=== PATIENT | female | born 1970 ===

== ENCOUNTER 2020-10-10 09:31 | Outpatient (REF) | payer MEDICAID, SELFPAY ==
--- NOTE | 2020-10-10 09:36 | MM_ITS ---
EXAMINATION: MM SCREENING DIGITAL BREAST TOMOSYNTHESIS, BILATERAL CLINICAL INFORMATION: Screening. Asymptomatic. The lifetime risk of breast cancer based on the Tyrer-Cuzick Model is 6.1%. COMPARISON: Mammography: February 02, 2019 and studies dating back to July 10, 2010 TECHNIQUE: Digital breast tomosynthesis is performed in both the craniocaudal and mediolateral oblique views along with computer-aided detection (CAD). Synthesized 2D images are generated from the tomosynthesis. FINDINGS: The breasts are almost entirely fatty (ACR BI-RADS breast composition Category a). There are no significant masses, abnormal calcifications, or other abnormalities. MM/MM tomosynthesis screening BI IMPRESSION: There are no significant changes from prior study. ASSESSMENT: BI-RADS 1: Negative RECOMMENDATION: Routine annual mammography screening. This patient's information was entered into a reminder system with a target due date for their next mammogram.
== END 2020-10-10 09:32 | disposition home or self-care (01) ==
LOC: HO.MAMMO 09:31
PROVIDERS: PCP Nurse Practitioner Family; Visit Provider Nurse Practitioner Family
DX: Z12.31 Encounter for screening mammogram for malignant neoplasm of breast (principal)
CPT/HCPCS: 77063; 77067

== ENCOUNTER 2020-11-29 09:33 | Outpatient (REF) | payer MEDICAID, SELFPAY ==
--- NOTE | ~2020-11-29 | US_ITS ---
EXAMINATION: US THYROID CLINICAL INFORMATION: Nontoxic multinodular goiter. COMPARISON: None TECHNIQUE: Linear transducer manzo-scale and color Doppler examination with attention to the region of the thyroid. FINDINGS: SIZE: Measurements of the thyroid lobes and nodules are given in sagittal, anteroposterior and transverse dimensions respectively. Right Thyroid Lobe: 5.8 x 2.2 x 2.3 cm, volume 14.8 mL. Parenchyma: The gland echotexture is homogeneous. Thyroid vascularity is normal. Left Thyroid Lobe: 4.7 x 1.7 x 2.3 cm, volume 9.9 mL. Parenchyma: The gland echotexture is heterogeneous. Thyroid vascularity is normal. Isthmus: 0.8 cm in maximum AP dimension. Estimated total number of nodules greater than or equal to 1 cm: 3. Jerker nodules are described as follows: 1. Location: Right upper pole. Size: 0.9 x 0.5 x 0.7 cm, volume 0.2 mL. Nodule characteristics: Composition: Spongiform (0). ACR TI-RADS total points: 0 ACR TI-RADS category: 1 2. Location: Right mid/lower pole. Size: 1.6 x 1.1 x 2.0 cm, volume 1.7 mL. Nodule characteristics: Composition: Solid/almost completely solid (2). Echogenicity: Cannot be determined (1). Shape: Not taller than wide (0). Margins: Ill-defined (0). Echogenic Foci: None (0). ACR TI-RADS total points: 3 ACR TI-RADS category: 3 3. Location: Right mid pole. Size: 0.4 x 0.2 x 0.3 cm, volume 0.01 mL. Nodule characteristics: Composition: Solid (2). Echogenicity: Hyperechoic (1). Shape: Not taller than wide (0). Margins: Smooth (0). Echogenic Foci: Macrocalcifications (1). ACR TI-RADS total points: 4 ACR TI-RADS category: 4 4. Location: Right lower pole. Size: 2.8 x 2.2 x 3.0 cm, volume 9.7 mL. Nodule characteristics: Composition: Solid (2). Echogenicity: Isoechoic (1). Shape: Not taller than wide (0). Margins: Extrathyroidal extension (3). Echogenic Foci: Macrocalcifications (1). ACR TI-RADS total points: 7 ACR TI-RADS category: 5 5. Location: Left mid. Size: 1.5 x 0.8 x 1.5 cm, volume 0.9 mL. Nodule characteristics: Composition: Solid/almost completely solid (2). Echogenicity: Hypoechoic (2). Shape: Not taller than wide (0). Margins: Smooth (0). Echogenic Foci: None (0). ACR TI-RADS total points: 4 ACR TI-RADS category: 4 NODES: No lymphadenopathy is seen in the tissue surrounding the thyroid gland. US/US thyroid IMPRESSION: Enlarged thyroid gland with bilateral thyroid nodules. Fine-needle aspiration of the largest 2.8 x 2.2 x 3 cm nodule in the inferior right lobe and continued ultrasound follow-up recommended as detailed below. ACR TI-RADS RECOMMENDATIONS: Ultrasound-guided fine-needle aspiration, followup ultrasound, no further follow up. * TR1 (0 point) and TR 2 (2 points): No FNA or follow up * TR3 (3 points): FNA if more than or equal to 2.5 cm in maximum dimension, follow up in 1, 3 and 5 years if 1.5 to 2.4 cm in maximum dimension. * TR4 (4-6 points): FNA if more than or equal to 1.5 cm in maximum dimension, follow up in 1, 2, 3 and 5 years if 1 to 1.4 cm in maximum dimension. * TR5 (more than or equal to 7 points): FNA if more than or equal to 1 cm in maximum dimension, follow up every year for 5 years if 0.5 to 0.9 cm in maximum dimension. * TR3, TR4 or TR5 nodules that are below the size threshold for follow up receive no follow up.
== END 2020-11-29 09:34 | disposition home or self-care (01) ==
LOC: HO.US 09:33
PROVIDERS: PCP Nurse Practitioner Family; Visit Provider Nurse Practitioner Family
DX: E04.2 Nontoxic multinodular goiter (principal)
CPT/HCPCS: 76536

== ENCOUNTER → 2020-12-27 14:13 | Outpatient (BNVA) | payer MEDICAID, SELFPAY | PROVIDERS: PCP Nurse Practitioner Family; Referring Provider Nurse Practitioner Family; Visit Provider Nurse Practitioner ==

== ENCOUNTER → 2021-07-01 12:50 | Outpatient (BNVA) | payer MEDICAID, SELFPAY | PROVIDERS: PCP Family Medicine; Referring Provider Family Medicine; Visit Provider Nurse Practitioner | DX: K21.9 Gastro-esophageal reflux disease without esophagitis (principal); R10.9 Unspecified abdominal pain; K58.0 Irritable bowel syndrome with diarrhea | CPT/HCPCS: 99212 ==

== ENCOUNTER 2021-07-09 12:49 | Outpatient (REF) | payer MEDICAID, SELFPAY | END 2021-07-09 12:50 | disposition home or self-care (01) | LOC: HO.HOSX 12:49 | PROVIDERS: Visit Provider Physician Assistant | DX: Z13.89 Encounter for screening for other disorder (principal) ==

== ENCOUNTER 2021-08-19 09:46 | Day surgery (SDC) | payer MEDICARE, MEDICAID, SELFPAY ==
[2021-08-13 14:06] VITALS: BMI 34.9
[2021-08-19 10:38] LABS: Glucose, Whole Blood 137 mg/dL (60-115)
[2021-08-19 10:42] VITALS: BP 142/69; PULSE 98; RESP 20; TEMP 36.2; O2SAT 99
--- NOTE | 2021-08-19 10:55 | MHC.SHP ---
Pre-Procedural Eval Section A Date of Service: 08/19/21 Section B Chief Complaint: screening Relevant Family History (Specify if Yes): No Relevant Social History: None Present Medications: see Short Stay Collaborative assessment Medical History: Significant History (migraine, DM, obesity) History of Previous Operations: Relevant previous surgery/procedure and date(s) (History of carpal tunnel release History of ear surgery History of nasal surgery Hx of tubal ligation S/P panniculectomy) Allergies: Allergies Allergy/AdvReac Type Severity Reaction Status Date / Time doxepin Allergy Intermediate Nightmare Verified 08/13/21 13:45 vaccine adjuvant system, Allergy Intermediate Itching/chalo Verified 08/13/21 13:45 [id number] lipo h [From Shingrix (PF)] varicella-zoster virus Allergy Intermediate Itching/chalo Verified 08/13/21 13:45 glycoprotein h [From Shingrix (PF)] Review of Systems Sugical H&P ROS: Negative: Constitution, Cardiovascular, Respiratory, Neurological, Psychiatric, Hem-Onc, Allergic/Immunologic, Gastrointestinal, Genitourinary, Musculoskeletal, Integumentary, Endocrine and Eyes/Ears/Nose/Throat Exam Surgical H&P Exam: Normal: HEENT, Normal: Heart, Normal: Lungs, Normal: Extremities, Normal: Abdomen, Normal: Skin and Normal: Neurological Plan Diagnosis/Plan: Unchanged I have reviewed the history and physical and performed a pertinent physical examination on my patient. No changes have occurred unless specified.
--- NOTE | 2021-08-19 11:06 | PM.OP ---
Brief Operative Note Date of Service: 08/19/21 Pre-op diagnosis: hx of post prandial diarrhea and needs screening colonoscopy Post-op diagnosis: same Procedure: see op note Surgeon: Bronson Sepulveda MD Anesthesia: MAC Was an Cushion Gum Applicator used for this Procedure?: No Estimated blood loss (mL): 0 Condition: stable Disposition: PACU
--- NOTE | 2021-08-19 11:07 | P.OP_ITS ---
Operative Note Operative Note Date of Service: 08/19/21 Narrative: Operative Information Procedure Description: Colonoscopy COLONOSCOPY Instrument: Olympus variable stiffness adult scope 190L Colonoscopy Monitoring: Vital signs and clinical assessment, continuous EKG monitoring, Pulse oximetry, Carbon Dioxide monitoring and blood pressure monitoring were done throughout the procedure. Colon withdrawal time was 13 minutes. Procedure: The patient was placed in the left lateral decubitis position and pre-procedure medications were administered. After a digital rectal examination of the ano-rectum, the video colonoscope was inserted into the rectum and advanced through the colon to the cecum/TI. The colonoscope was slowly withdrawn in a retrograde panoramic fashion and the colon mucosa was carefully examined including a retroflexed view of the rectum. Findings and interventions are described below. Procedure Difficulty:moderate Findings: Terminal Ileum-normal, unable to take biospy due to unstable position random colon bx taken to r/o microscopic colitis Cecum:normal Ascending Colon: normal Transverse Colon -normal Descending Colon:normal Sigmoid Colon: normal Rectum: Retroflexion with small internal hemorrhoids, grade I Anorectum - normal Colon preparation: [place] Bowel Preparation Scale Right colon; 2 Transverse colon: 2 Left colon; 2 (0 = Unprepared colon segment with mucosa not seen due to solid stool that cannot be cleared. 1 = Portion of mucosa of the colon segment seen, but other areas of the colon segment not well seen due to staining, residual stool and/or opaque liquid. 2 = Minor amount of residual staining, small fragments of stool and/or opaque liquid, but mucosa of colon segment seen well. 3 = Entire mucosa of colon segment seen well with no residual staining, small fragments of stool or opaque liquid) Impression and Post Procedure Diagnosis: internal hemorrhoids Plan: High fiber diet leaflet Avoid straining at stool, epsom salts and sitz bath, anusol supps or cream Repeat Colonoscopy in 10 years or earlier if clinically indicated if bx neg and ongoing sx of post prandial diarrhea then consider EGD Above findings were reviewed with the patient and relevant handouts were provided if indicated.
[2021-08-19 11:45] VITALS: BP 127/68; PULSE 75; RESP 16; TEMP 36.4; O2SAT 100
[2021-08-19 12:02] VITALS: BP 144/79; PULSE 75; RESP 16; TEMP 36.2; O2SAT 98
== END 2021-08-19 12:50 | disposition home or self-care (01) ==
PROVIDERS: PCP Family Medicine; Visit Provider Internal Medicine Gastroenterology
PROC: 0DJD8ZZ Inspection of Lower Intestinal Tract, Via Natural or Artificial Opening Endoscopic (ICD-10-PCS; CPT 45378; principal; 2021-08-19 10:20)
DX: Z12.11 Encounter for screening for malignant neoplasm of colon (principal); K64.0 First degree hemorrhoids; K58.0 Irritable bowel syndrome with diarrhea; K21.9 Gastro-esophageal reflux disease without esophagitis; R10.30 Lower abdominal pain, unspecified; J45.909 Unspecified asthma, uncomplicated; G40.909 Epilepsy, unspecified, not intractable, without status epilepticus; I10 Essential (primary) hypertension; E11.9 Type 2 diabetes mellitus without complications; Z79.4 Long term (current) use of insulin; Z79.899 Other long term (current) drug therapy
CPT/HCPCS: 45380; 82947; 88305

== ENCOUNTER 2021-11-11 11:40 | Outpatient (REF) | payer MEDICARE, MEDICAID, SELFPAY ==
--- NOTE | ~2021-11-11 | MM_ITS ---
EXAMINATION: MM SCREENING DIGITAL BREAST TOMOSYNTHESIS, BILATERAL CLINICAL INFORMATION: Screening. Asymptomatic. The lifetime risk of breast cancer based on the Tyrer-Cuzick Model is 6%. COMPARISON: Mammography: 10/10/2020, 02/02/2019, 12/30/2017 TECHNIQUE: Digital breast tomosynthesis is performed in both the craniocaudal and mediolateral oblique views along with computer-aided detection (CAD). Synthesized 2D images are generated from the tomosynthesis. FINDINGS: There are scattered areas of fibroglandular density (ACR BI-RADS breast composition Category b). Breast tissue composition borders on predominantly fatty. Background stromal and fibroglandular markings are stable. There is a biopsy clip marker again seen posterior upper outer left breast. There is no developing density or interval mass or architectural abnormality. No abnormal calcifications. The axilla and skin contours are unremarkable. MM/MM tomosynthesis screening BI IMPRESSION: No mammographic evidence of malignancy. ASSESSMENT: BI-RADS 1: Negative RECOMMENDATION: Routine annual mammography screening. This patient's information was entered into a reminder system with a target due date for their next mammogram.
== END 2021-11-11 11:41 | disposition home or self-care (01) ==
LOC: HO.MAMMO 11:40
PROVIDERS: PCP Family Medicine; Visit Provider Family Medicine
DX: Z12.31 Encounter for screening mammogram for malignant neoplasm of breast (principal)
CPT/HCPCS: 77063; 77067

== ENCOUNTER 2021-11-29 07:10 | Outpatient (REF) | payer MEDICARE, MEDICAID, SELFPAY | END 2021-11-29 07:11 | disposition home or self-care (01) | LOC: HO.HOSX 07:10 | PROVIDERS: Visit Provider Physician Assistant | DX: Z13.89 Encounter for screening for other disorder (principal) ==

== ENCOUNTER 2021-12-23 07:33 | Outpatient (REF) | payer MEDICARE, MEDICAID, SELFPAY | END 2021-12-23 07:34 | disposition home or self-care (01) | LOC: HO.HOSX 07:33 | PROVIDERS: Visit Provider Physician Assistant | DX: Z13.89 Encounter for screening for other disorder (principal) ==

== ENCOUNTER 2021-12-25 15:11 | Outpatient (REF) | payer MEDICARE, MEDICAID, SELFPAY ==
--- NOTE | ~2021-12-25 | XR_ITS ---
EXAMINATION: XR HIP, RIGHT CLINICAL INFORMATION: Trochanteric bursitis, right hip COMPARISON: None TECHNIQUE: Two views of the right hip. FINDINGS: Bones and soft tissues are intact. There is mild enthesopathy at the greater and lesser trochanters. No fracture. Alignment is anatomic. Hip joint space is maintained, though there is a tiny focus of soft tissue calcification along the superolateral margin of the acetabulum. There are pelvic phleboliths. There is vascular calcification medial to the right femur. XR/XR hip RT min 2V IMPRESSION: No acute bony abnormality of the right hip. There is mild enthesopathy of the greater and lesser trochanters and tiny focus of calcification along the superolateral margin of the right acetabulum.
--- NOTE | ~2021-12-25 | XR_ITS ---
EXAMINATION: XR LUMBOSACRAL SPINE CLINICAL INFORMATION: Segmental and somatic dysfunction of sacral region COMPARISON: Lumbar spine radiographs 06/25/2018 TECHNIQUE: Three views of the lumbosacral spine. FINDINGS: Alignment of the lumbosacral spine is normal. No acute fracture seen. Disc spaces are relatively well-preserved when compared with prior. There are degenerative endplate changes of the thoracolumbar vertebral bodies most prominent at the lower thoracic levels where there is disc osteophyte formation along the anterolateral margins. There is some degree of foraminal narrowing at the L5-S1 foramina. XR/XR lumbar spine 2-3V IMPRESSION: Multilevel degenerative endplate change and osteophyte formation without acute abnormality. There may be some degree of foraminal narrowing at L5-S1.
== END 2021-12-25 15:12 | disposition home or self-care (01) ==
LOC: HO.XRAY 15:11
PROVIDERS: PCP Family Medicine; Visit Provider Family Medicine
DX: M70.61 Trochanteric bursitis, right hip (principal); M99.04 Segmental and somatic dysfunction of sacral region
CPT/HCPCS: 72100; 73502

== ENCOUNTER 2022-09-03 09:35 | Outpatient (REF) | payer MEDICARE, MEDICAID, SELFPAY ==
--- NOTE | ~2022-09-03 | XR_ITS ---
EXAMINATION: XR LUMBOSACRAL SPINE CLINICAL INFORMATION: Sacrococcygeal disorder COMPARISON: Previous x-ray most recent December 2021 TECHNIQUE: Three views of the lumbosacral spine. FINDINGS: There is curvature of the lumbar spine to the right. Bone alignment is otherwise normal. No fracture or dislocation. There is multilevel degenerative spondylosis in the lower thoracic spine, and at L1-L2 and L3-L4. Disc spaces are normal. There may be lower lumbar spine facet arthritis. XR/XR lumbar spine 2-3V IMPRESSION: Mild scoliosis and degenerative changes similar to December 2021 exam.
== END 2022-09-03 09:36 | disposition home or self-care (01) ==
LOC: HO.XRAY 09:35
PROVIDERS: PCP Family Medicine; Visit Provider Family Medicine
DX: M53.3 Sacrococcygeal disorders, not elsewhere classified (principal)
CPT/HCPCS: 72100

== ENCOUNTER 2023-01-21 12:14 | Outpatient (REF) | payer MEDICARE, MEDICAID, SELFPAY ==
--- NOTE | ~2023-01-21 | MM_ITS ---
EXAMINATION: MM SCREENING DIGITAL BREAST TOMOSYNTHESIS, BILATERAL CLINICAL INFORMATION: Screening. Asymptomatic. The lifetime risk of breast cancer based on the Tyrer-Cuzick Model is 6%. COMPARISON: Mammography: 11/11/2021, 10/10/2020, 02/02/2019 TECHNIQUE: Digital breast tomosynthesis is performed in both the craniocaudal and mediolateral oblique views along with computer-aided detection (CAD). Synthesized 2D images are generated from the tomosynthesis. FINDINGS: There are scattered areas of fibroglandular density (ACR BI-RADS breast composition Category b). No architectural abnormality or developing density or significant change from prior studies. Breast tissue composition borders on predominantly fatty. Background stromal and fibroglandular densities are stable. There are no significant masses, abnormal calcifications, or other abnormalities. Biopsy clip marker again seen posterior 3:00 left breast. MM/MM tomosynthesis screening BI IMPRESSION: No mammographic evidence of malignancy. ASSESSMENT: BI-RADS 1: Negative RECOMMENDATION: Routine annual mammography screening. This patient's information was entered into a reminder system with a target due date for their next mammogram.
== END 2023-01-21 12:15 | disposition home or self-care (01) ==
LOC: HO.MAMMO 12:14
PROVIDERS: PCP Family Medicine; Visit Provider Family Medicine
DX: Z12.31 Encounter for screening mammogram for malignant neoplasm of breast (principal)
CPT/HCPCS: 77063; 77067

== ENCOUNTER 2023-03-19 09:36 | Outpatient (REF) | payer MEDICARE, MEDICAID, SELFPAY ==
--- NOTE | ~2023-03-19 | XR_ITS ---
EXAMINATION: XR FACIAL BONES CLINICAL INFORMATION: Right arm contusion COMPARISON: None available. TECHNIQUE: 3 views of the facial bones were obtained. FINDINGS: There are no fractures or dislocations. No bone, joint or soft tissue abnormality is demonstrated. XR/XR facial bones min 3V IMPRESSION: Unremarkable examination.
== END 2023-03-19 09:37 | disposition home or self-care (01) ==
LOC: HO.XRAY 09:36
PROVIDERS: PCP Family Medicine; Visit Provider Family Medicine
DX: S05.11XA Contusion of eyeball and orbital tissues, right eye, initial encounter (principal)
CPT/HCPCS: 70150

== ENCOUNTER 2023-06-11 12:06 | Emergency (ER) | payer MEDICARE, MEDICAID, SELFPAY ==
--- NOTE | ~2023-06-11 | XR_ITS ---
X-RAY RIGHT SHOULDER X-RAY RIGHT HUMERUS CLINICAL HISTORY: Pain. COMPARISON: Radiograph right elbow earlier today. TECHNIQUE: 3 views of the right shoulder. 2 views of the right humerus. FINDINGS: Right shoulder: No acute fractures or subluxation. Moderate joint space narrowing with bony productive changes in the acromioclavicular joint. Ossific/calcific body adjacent to the greater tuberosity of the proximal humerus in the region of the insertion of the supraspinatus tendon. Right humerus: Redemonstration of avulsion fragment in along the medial articulating margin of the ulna. No additional fractures. Joint alignment is maintained at the elbow. XR/XR humerus RT IMPRESSION: 1. Redemonstration of intra-articular avulsion fracture along the medial articulating margin of the proximal ulna. 2. 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 3. Calcific/ossific body in the region of the insertion of the supraspinatus tendon suggesting calcific tendinitis.
--- NOTE | ~2023-06-11 | XR_ITS ---
X-RAY RIGHT SHOULDER X-RAY RIGHT HUMERUS CLINICAL HISTORY: Pain. COMPARISON: Radiograph right elbow earlier today. TECHNIQUE: 3 views of the right shoulder. 2 views of the right humerus. FINDINGS: Right shoulder: No acute fractures or subluxation. Moderate joint space narrowing with bony productive changes in the acromioclavicular joint. Ossific/calcific body adjacent to the greater tuberosity of the proximal humerus in the region of the insertion of the supraspinatus tendon. Right humerus: Redemonstration of avulsion fragment in along the medial articulating margin of the ulna. No additional fractures. Joint alignment is maintained at the elbow. XR/XR shoulder RT min 2V IMPRESSION: 1. Redemonstration of intra-articular avulsion fracture along the medial articulating margin of the proximal ulna. 2. 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 3. Calcific/ossific body in the region of the insertion of the supraspinatus tendon suggesting calcific tendinitis.
--- NOTE | ~2023-06-11 | XR_ITS ---
EXAMINATION: XR WRIST, RIGHT CLINICAL INFORMATION: Pain. COMPARISON: None available. TECHNIQUE: Four views of the right wrist. FINDINGS: No acute fractures or subluxation. Carpal rows are maintained. No abnormal soft tissue calcifications or unexpected radiopaque foreign bodies. XR/XR wrist RT min 3V IMPRESSION: No significant radiographic abnormality to explain the patient's pain.
--- NOTE | ~2023-06-11 | XR_ITS ---
EXAMINATION: XR ELBOW, RIGHT CLINICAL INFORMATION: Pain status post fall. COMPARISON: None available. TECHNIQUE: AP, lateral, and oblique views of the right elbow. FINDINGS: There is an acute appearing nondisplaced intra-articular fracture along the medial/proximal articulating margin of the ulna. The proximal radius and distal humerus appear intact. No significant joint effusion. The soft tissues are unremarkable. XR/XR elbow RT min 3V IMPRESSION: Acute appearing nondisplaced intra-articular fracture along the medial/proximal articulating margin of the ulna.
--- NOTE | 2023-06-11 12:33 | ED_ITS ---
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 Patient states that she tripped on uneven concrete yesterday and fell onto her right elbow. Patient reports that she was feeling well prior to the fall. Denies any dizziness, headaches, lightheadedness, chest pain or palpitations prior to the fall. She states that she fell onto her outstretched right hand. She immediately felt pain in her right elbow. She states that she was unable to sleep given the pain that she was having last night. Denies history of trauma to her right elbow in the past. She denies taking any medications at home to treat her pain. No other complaints or concerns at this time. MD complaint: Right elbow pain Onset (ago): day(s) Location: upper extremity Radiation: non-radiation Severity: moderate Quality: aching Pain Consistency: constant Relieving factors: none Exacerbating factors: none Associated symptoms: denies other symptoms Treatments prior to arrival: none Related Data Home Medications Medication Instructions Recorded Confirmed albuterol sulfate 90 mcg/actuation 2 puff inhalation Q6H PRN Wheezing 12/27/20 08/13/21 aerosol inhaler (ProAir HFA) atorvastatin 80 mg tablet 80 mg PO DAILY 12/27/20 08/13/21 cholecalciferol (vitamin D3) 50 50 mcg PO DAILY 12/27/20 08/13/21 mcg (2,000 unit) capsule darifenacin 15 mg tablet,extended 15 mg PO DAILY 12/27/20 08/13/21 release 24 hr glipizide 5 mg tablet 5 mg PO DAILY 12/27/20 12/27/20 insulin glargine 100 unit/mL (3 6 unit subcut QPM 12/27/20 08/13/21 mL) subcutaneous pen (Lantus Solostar U-100 Insulin) loratadine 10 mg tablet (Allergy 10 mg PO DAILY 12/27/20 08/13/21 Relief (loratadine)) melatonin 5 mg capsule 5 mg PO BEDTIME 12/27/20 08/13/21 metformin 1,000 mg tablet 1,000 mg PO BID 12/27/20 08/13/21 mometasone 50 mcg/actuation nasal 2 spray intranasal DAILY 12/27/20 08/13/21 spray (Nasonex) trazodone 50 mg tablet 50 mg PO DAILY 12/27/20 08/13/21 oxcarbazepine 600 mg tablet 600 mg PO QAM 07/01/21 08/13/21 propranolol 20 mg tablet 20 mg PO BID 07/01/21 08/13/21 citalopram 20 mg tablet 1 tab PO DAILY 08/13/21 08/13/21 dulaglutide 1.5 mg/0.5 mL 0.5 ml subcut QWEEK 08/13/21 08/13/21 subcutaneous pen injector (Trulicity) fluticasone propionate 44 2 puff PO BID 08/13/21 08/13/21 mcg/actuation HFA aerosol inhaler (Flovent HFA) lisinopril 20 mg tablet 1 tab PO DAILY 08/13/21 08/13/21 oxcarbazepine 600 mg tablet 1,200 mg PO BEDTIME 08/13/21 08/13/21 Previous Rx's Medication Instructions Recorded peg 3350-electrolytes 236 240 ml PO Q10M 1 day #4,000 mL 07/01/21 gram-22.74 gram-6.74 gram-5.86 gram solution (Golytely) omeprazole 40 mg capsule,delayed 40 mg PO DAILY #30 caps 09/26/21 release imipramine HCl 10 mg tablet 10 mg PO BEDTIME 30 days #30 tabs 04/25/22 dicyclomine 20 mg tablet 20 mg PO BID for cramps #120 tabs 03/11/23 acetaminophen 325 mg capsule 650 mg PO Q6H PRN pain #45 caps 06/11/23 (Tylenol) ibuprofen 600 mg tablet 600 mg PO Q6H PRN pain #45 tabs 06/11/23 oxycodone 5 mg tablet 5 mg PO Q6H PRN pain #5 tabs 06/11/23 Allergies Allergy/AdvReac Type Severity Reaction Status Date / Time doxepin Allergy Intermediate Nightmare Verified 06/11/23 12:34 vaccine adjuvant system, Allergy Intermediate Itching/chalo Verified 06/11/23 12:34 AS01B lipo h [From Shingrix (PF)] varicella-zoster virus Allergy Intermediate Itching/chalo Verified 06/11/23 12:34 glycoprotein h [From Shingrix (PF)] Review of Systems Review of Systems: Yes all other systems are reviewed and are negative Constitutional: Constitutional: Reports as per HPI [facility] Past Medical History Medical History Asthma Depression Diabetes Epilepsy GERD (gastroesophageal reflux disease) HTN (hypertension) IBS (irritable bowel syndrome) Sleep apnea Surgical History History of carpal tunnel release History of ear surgery History of nasal surgery Hx of tubal ligation S/P panniculectomy Family History Family History Father Diabetes Mother Alzheimers disease HTN (hypertension) Social History Social History Alcohol intake: unknown Patient Tobacco Use Status: Former Tobacco user Tobacco use type: Cigarette Advance Directives: No Physical Exam ED Vital Signs: Vital Signs - 24 hr 06/11/23 12:35 06/11/23 14:41 06/11/23 17:54 Temperature 98 F 98.1 F Pulse Rate 76 78 75 Respiratory Rate 18 16 18 Blood Pressure 143/84 H 144/75 H 142/72 H Pulse Oximetry 98 96 100 Oxygen Delivery Method Room Air Room Air BMI result Body Mass Index 33.2 Const General: cooperative, comfortable and no acute distress Orientation/consciousness: patient oriented x3 Limitations: no limitations [facility] Head: Yes normal to inspection, Yes normocephalic and Yes atraumatic Ears: hearing grossly normal bilaterally General nose exam: Normal external nose present Face and sinus: Yes normal facial exam Mouth: Normal oral and palatal mucosa present, oropharynx normal and moist mucous membranes Throat: Yes posterior oropharynx normal Eyes General: appearance normal, both eyes and all related structures Eyelids: Yes eyelids normal Conjunctivae: conjunctivae normal Sclerae: sclerae normal Pupils: Equal, round and reactive pupils present EOM: EOMs intact bilaterally Neck Neck: Yes normal visual inspection, Yes full ROM and Yes no lymphadenopathy Lymphatic: no lymphadenopathy noted Chest Chest palpation & inspection: normal inspection of the chest Resp Effort & Inspection: normal respiratory effort and able to speak in complete sentences Auscultation: clear to auscultation bilaterally, no crackles, no rales, no rhonchi and no wheezes Cardio Rate: regular rate Rhythm: regular rhythm Heart sounds: S1 normal heart sound present and S2 normal heart sound present GI Inspection: Yes normal to inspection Skin General skin exam: no rashes or lesions noted Trauma: no lacerations or abrasions Wounds: no wounds Neuro General: patient oriented x3 and moves all extremities Cranial nerves: Yes Equal, round and reactive pupils present Extrem Other: Right elbow with tenderness to palpation along the medial lateral epicondyle. Limited range of motion secondary to pain. Tenderness to palpation over the distal radius and, no snuffbox tenderness. Able to make a fist without difficulty. Tenderness diffusely throughout right shoulder and right humerus without any specific point tenderness. No overlying warmth, erythema. Distal pulses 2+. General: Yes normal to inspection Right upper extremity: normal to inspection Left upper extremity: normal to inspection Right lower extremity: normal to inspection Left lower extremity: normal to inspection Course Course Course Narrative: RME- 53-year-old female presents for evaluation of right elbow pain after a fall. She reports tripping on concrete because it is uneven. This happened yesterday. Plan for x-ray. Denies hitting her head or losing consciousness Medications Administered Discontinued Medications Generic Name Dose Route Start Last Admin Trade Name Freq PRN Reason Stop Dose Admin Acetaminophen 975 mg 06/11/23 16:06 06/11/23 16:14 Acetaminophen 325 Mg Tablet PO 06/11/23 16:07 975 mg ONCE ONE Administration Procedures Orthopedic Splinting/Casting Injury #1: Side: right Upper Extremity Injury Location: elbow Upper Extremity Immobilizer: sling/shoulder immobilizer and sugar tong splint Additional Comments: Distal sensation and circulation intact post splinting Medical Decision Making Medical Decision Making MDM Narrative: This is a 53-year-old female presenting to the emergency department for evaluation of right elbow pain since mechanical fall which occurred yesterday. On arrival, patient mildly hypertensive at 143/84. All other vital signs within normal limits. Examination revealing right elbow edema and tenderness. Concerning for fracture. Less likely compartment syndrome given no exquisite tenderness. Patient also has diffuse tenderness along the right humerus right shoulder and right wrist. Given fracture, will obtain x-rays for further evaluation. Additional x-rays revealing degenerative changes without any acute fractures besides the intra articular avulsion fracture along the medial articulating margin of the proximal ulna. I discussed this with my attending physician, Dr. Reveles. Will place patient in sugar-tong splint, given orthopedic referral. Discharged on ibuprofen and Tylenol. Also given prescription for oxycodone to be used for severe pain only. Patient placed in sling. Patient expresses good understanding of current medical condition and will follow-up with orthopedics. Will call tomorrow for appointment. Patient stable for discharge Differential Diagnosis Differential Diagnoses: The differential diagnosis associated with the presentation includes Fracture, contusion, dislocation, compartment syndrome-un likely Radiology Impression Discussion of test interpretation with radiology: I have reviewed the radiologist's reading. Radiologist Impression: X-RAY RIGHT SHOULDER X-RAY RIGHT HUMERUS CLINICAL HISTORY: Pain. COMPARISON:? Radiograph right elbow earlier today. TECHNIQUE: 3 views of the right shoulder. 2 views of the right humerus. FINDINGS:? Right shoulder: No acute fractures or subluxation. Moderate joint space narrowing with bony productive changes in the acromioclavicular joint. Ossific/calcific body adjacent to the greater tuberosity of the proximal humerus in the region of the insertion of the supraspinatus tendon. Right humerus: Redemonstration of avulsion fragment in along the medial articulating margin of the ulna. No additional fractures. Joint alignment is maintained at the elbow. XR/XR humerus RT IMPRESSION: 1.? Redemonstration of intra-articular avulsion fracture along the medial articulating margin of the proximal ulna. 2.? 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 3.? Calcific/ossific body in the region of the insertion of the supraspinatus tendon suggesting calcific tendinitis. Dictated By: Poornima Kinney Signed By: <Electronically signed by Rosalind Kinney in OV> Prescription Management I considered prescription management with: Pain Medication Discharge Plan Discharge Clinical Impression: Fracture of proximal ulna Patient Disposition: Home, Self-Care Instructions: Arm Fracture in Adults (ED), Shoulder Immobilizer (ED) Additional Instructions: You were seen today for right elbow pain, and your x-rays that report performed today shows an ulnar fracture. Please keep arm in splint and shoulder immobilizer until you are seen by Orthopedics. Please call tomorrow to make an appointment. Please take ibuprofen and Tylenol as directed as needed for pain. I am also giving you a stronger pain medication. Please be advised that oxycodone can cause drowsiness, do not drink alcohol or drive while taking this medication. Only take this medication for severe pain only. This medication can be addictive, therefore it is crucial to only take if you need it. We are unable to refill this pain medication from the emergency department therefore if you have any pain that requires and medication refill on you must follow-up with your primary care physician. Rest, ice, elevate your arm for pain relief. If any new or worsening symptoms occur including but not limited to worsening pain, numbness and tingling into her fingers, or any other concerning symptoms, please return for re-evaluation. Lo atendieron hoy por dolor en el codo derecho y las radiograf?as que le realizaron hoy muestran daina fractura cubital. Mantenga el brazo entablillado y el inmovilizador de hombro hasta que lo atienda un ortopedista. Por favor llame ma?hector para programar daina trudy. Parole ibuprofeno y Tylenol seg?n las indicaciones, seg?n sea necesario para el dolor. Tambi?n te estoy dando un analg?sico m?s evans. Tenga en cuenta que la oxicodona puede provocar somnolencia; no blas alcohol ni conduzca mientras est? tomando wild medicamento. Parole wild medicamento ?nicamente para el dolor i ntenso. Wild medicamento puede ser adictivo, por lo que es fundamental tomarlo s?lo si lo necesita. No podemos reabastecer wild analg?sico desde el departamento de emergencias, por lo tanto, si tiene alg?n dolor que requiera un reabastecimiento de medicamento, debe realizar un seguimiento con baez m?dico de atenci?n primaria. Descanse, coloque hielo, levante el brazo para aliviar el dolor. Si se presenta alg?n s?ntoma nuevo o que empeora, incluido, entre otros, un empeoramiento del dolor, entumecimiento y hormigueo en los dedos, o cualquier otro s?ntoma preocupante, regrese para daina reevaluaci?n. Prescriptions: New ibuprofen 600 mg tablet 600 mg PO Q6H PRN (Reason: pain) Qty: 45 0RF acetaminophen [Tylenol] 325 mg capsule 650 mg PO Q6H PRN (Reason: pain) Qty: 45 0RF oxycodone 5 mg tablet 5 mg PO Q6H PRN (Reason: pain) Qty: 5 0RF Rx Instructions: Partial Fill upon patient request. No Action omeprazole 40 mg capsule,delayed release(DR/EC) 40 mg PO DAILY Qty: 30 0RF imipramine HCl 10 mg tablet 10 mg PO BEDTIME 30 Days Qty: 30 6RF dicyclomine 20 mg tablet 20 mg PO BID Qty: 120 5RF oxcarbazepine 600 mg Tablet 1,200 mg PO BEDTIME lisinopril 20 mg tablet 1 tab PO DAILY citalopram 20 mg tablet 1 tab PO DAILY Flovent HFA 44 mcg/actuation HFA aerosol inhaler 2 puff PO BID Trulicity 1.5 mg/0.5 mL pen injector 0.5 ml subcut QWEEK oxcarbazepine 600 mg tablet 600 mg PO QAM propranolol 20 mg tablet 20 mg PO BID peg 3350-electrolytes [Golytely] 236-22.74-6.74 -5.86 gram recon soln 240 ml PO Q10M 1 Days Qty: 4000 0RF Rx Instructions: until fecal effluent is clear; do not exceed a total volume of 2,000 mL metformin 1,000 mg tablet 1,000 mg PO BID atorvastatin 80 mg tablet 80 mg PO DAILY mometasone [Nasonex] 50 mcg/actuation spray,non-aerosol 2 spray intranasal DAILY Rx Instructions: administer into each nostril albuterol sulfate [ProAir HFA] 90 mcg/actuation HFA aerosol inhaler 2 puff inhalation Q6H PRN (Reason: Wheezing) trazodone 50 mg tablet 50 mg PO DAILY darifenacin 15 mg tablet extended release 24 hr 15 mg PO DAILY cholecalciferol (vitamin D3) 50 mcg (2,000 unit) capsule 50 mcg PO DAILY melatonin 5 mg capsule 5 mg PO BEDTIME glipizide 5 mg tablet 5 mg PO DAILY Lantus Solostar U-100 Insulin 100 unit/mL (3 mL) insulin pen 6 unit subcut QPM loratadine [Allergy Relief (loratadine)] 10 mg tablet 10 mg PO DAILY Referrals: [facility] Orthopedic Surgeons [Provider Group] Interventions: ED Discharge Assessment Last Done: 06/11/23 18:38 Discharge Date/Time: 06/11/23 18:39
[2023-06-11 12:35] VITALS: BP 143/84; PULSE 76; RESP 18; TEMP 36.6; O2SAT 98; BMI 33.2
[2023-06-11 14:41] VITALS: BP 144/75; PULSE 78; RESP 16; O2SAT 96
[2023-06-11] MEDS: Acetaminophen 325 MG TABLET 975 MG PO (16:14)
[2023-06-11 17:54] VITALS: BP 142/72; PULSE 75; RESP 18; TEMP 36.7; O2SAT 100
== END 2023-06-11 18:39 | disposition home or self-care (01) ==
PROVIDERS: Emergency Provider Emergency Medicine; PCP Family Medicine
DX: S52.001A Unspecified fracture of upper end of right ulna, initial encounter for closed fracture (principal); W01.0XXA Fall on same level from slipping, tripping and stumbling without subsequent striking against object, initial encounter; Y93.01 Activity, walking, marching and hiking; Y92.480 Sidewalk as the place of occurrence of the external cause; Y99.9 Unspecified external cause status
CPT/HCPCS: 29105; 73030; 73060; 73080; 73110; 99284

== ENCOUNTER 2023-06-29 06:53 | Outpatient (REF) | payer MEDICARE, MEDICAID, SELFPAY ==
--- NOTE | ~2023-06-29 | XR_ITS ---
EXAMINATION: XR ELBOW, RIGHT CLINICAL INFORMATION: Right elbow pain. COMPARISON: Right elbow radiographs dated 06/11/2023. TECHNIQUE: AP, lateral, and oblique views of the right elbow. FINDINGS: Ulnotrochlear joint space narrowing with bony remodeling, subchondral sclerosis, and marginal osteophytes, similar when compared to the prior examination. Enthesopathic spurring redemonstrated at the lateral epicondyle. No acute fracture or dislocation. No concerning lytic or blastic osseous lesion. No significant joint effusion. XR/XR elbow RT min 3V IMPRESSION: 1. Ifheoyqz-bn-ldogpt ulnotrochlear osteoarthritis, similar when compared to the prior examination. 2. Enthesopathic spurring redemonstrated at the lateral epicondyle.
== END 2023-06-29 06:54 | disposition home or self-care (01) ==
LOC: HO.HOSX 06:53
PROVIDERS: Visit Provider Physician Assistant
DX: S42.444A Nondisplaced fracture (avulsion) of medial epicondyle of right humerus, initial encounter for closed fracture (principal); W01.0XXA Fall on same level from slipping, tripping and stumbling without subsequent striking against object, initial encounter; Y93.9 Activity, unspecified; Y92.9 Unspecified place or not applicable; Y99.9 Unspecified external cause status
CPT/HCPCS: 73080

== ENCOUNTER 2023-06-29 13:35 | Outpatient (AMB) | payer MEDICARE, MEDICAID, SELFPAY ==
--- NOTE | 2023-06-29 13:48 | A.OFFVIS_ITS ---
Intake Vital Signs 06/29/23 13:56 Height 5 ft 8 in Weight 218 lb BMI 33.1 Intake Visit Reasons: fc-Fracture of proximal ulna DOI 06/10/23 Intake Note: Lianna a 53 year old right hand dominant female who presents today with daughter for an ER follow up of right proximal ulna fx, DOI 06/10/23. Patient reports she tripped causing her to fall on her right elbow. Currently pain has improved since injury. Denies numbness or tingling. Complaints of pain in her right shoulder but states this is caused by her arthritis. Allergies doxepin Allergy (Intermediate, Verified 06/29/23 13:51) Nightmare vaccine adjuvant system, AS01B lipo [From Shingrix (PF)] Allergy (Intermediate, Verified 06/29/23 13:51) Itching/rash varicella-zoster virus glycoprotein [From Shingrix (PF)] Allergy (Intermediate, Verified 06/29/23 13:51) Itching/rash HPI fc-Fracture of proximal ulna DOI 06/10/23 HPI Details 53-year-old right hand dominant female juan reece presents to the office today with her daughter for an ER follow-up of elbow injury s/p tripping and falling on her right elbow, 06/10/23. She states she has pain in her right elbow which is improved since her DOI. She denies any numbness or tingling. [facility] Medical History Asthma Depression Diabetes Epilepsy GERD (gastroesophageal reflux disease) HTN (hypertension) IBS (irritable bowel syndrome) Sleep apnea Surgical History S/P panniculectomy History of carpal tunnel release Hx of tubal ligation History of nasal surgery History of ear surgery Family History Father Diabetes Mother Alzheimers disease HTN (hypertension) Social History (Updated 06/29/23 @ 13:57 by REZA Perez) Alcohol intake: unknown Patient Tobacco Use Status: Former Tobacco user Tobacco use type: Cigarette Current occupational status: unemployed Current occupation: right hand dominant Review of Systems Const All systems reviewed & are unremarkable except as noted in HPI and below Physical Exam Vital Signs: BMI result Body Mass Index 33.1 Extrem Other: Right elbow: Normal to inspection. She has no tenderness over the medial or lateral epicondyle. No pain over the radial head or olecranon. She has full flexion and extension. She can sup and pro without pain. NVI. Office Procedures Fracture Care Fracture Billing Code: Fracture Billing Code Results Reviewed Results Reviewed: X-rays of the right elbow obtained in the office today show an evulsion fracture along the medial epicondyle of the right elbow. Assessment & Plan Assessment & Plan (1) Fracture of medial epicondyle of humerus: Code(s): S42.443A - Displaced fracture (avulsion) of medial epicondyle of unspecified humerus, initial encounter for closed fracture Qualifiers: Encounter type: initial encounter Fracture type: closed Fracture morphology: avulsion Fracture alignment: nondisplaced Laterality: right Qual ified Code(s): S42.444A - Nondisplaced fracture (avulsion) of medial epicondyle of right humerus, initial encounter for closed fracture Plan Given the absence of pain and her full function she can increase activity as tolerated using caution with any type of lifting activities that may cause pain. If she develops any type of ques or concerns, patient will contact the office, otherwise follow-up as needed. Orders: Orders XR elbow RT min 3V Today M25.521 - Pain in right elbow Patient Instructions: Scribed for Jackie Manriquez PA-C, by Leonides Beltran medical billing and coding instructor, on 06/29/2023 at 1:45 PM EST. IJackie PA-C, have personally reviewed and agree with the information entered by the scribe. Coding Level of Care Code New Pt Level 3 (80734) Diagnoses Closed nondisplaced avulsion fracture of medial epicondyle of right humerus, initial encounter S42.444A Encounter type: initial encounter Fracture type: closed Fracture morphology: avulsion Fracture alignment: nondisplaced Laterality: right CPT Codes Fracture Care - Fracture Billing Code: Fracture Billing Code ([id number])
[2023-06-29 13:56] VITALS: BMI 33.1
== END 2023-06-29 14:06 | disposition home or self-care (01) ==
PROVIDERS: PCP Family Medicine; Visit Provider Physician Assistant
DX: S42.444A Nondisplaced fracture (avulsion) of medial epicondyle of right humerus, initial encounter for closed fracture (principal)
CPT/HCPCS: 99203

== ENCOUNTER 2023-12-31 09:58 | Outpatient (REF) | payer MEDICARE, MEDICAID, SELFPAY ==
[2023-12-31 14:19] LABS: MANUAL DIFF FLAG NO
[2023-12-31 14:25] LABS: Basophils Percent Auto 0.4 % (0-2); Eosinophils Absolute Auto 0.2 X10*3/uL (0.0-0.4); Eosinophils Percent Auto 3.9 % (0-4); Hematocrit 28.3 % (37.0-47.0); Imm Gran Abs Auto 0.02 X10*3/uL (0.00-0.03); Imm Gran Pct Auto 0.4 % (0.0-0.4); Lymphocytes Absolute Auto 1.7 X10*3/uL (1.2-4.9); Lymphocytes Percent Auto 30.4 % (20-40); Mean Corpuscular HGB Conc 31.8 g/dl (31.0-35.0); Mean Corpuscular Hemoglobin 25.6 pg (27.0-33.0); Mean Corpuscular Volume 80.6 fL (80.0-98.0); Mean Platelet Volume 8.6 fL (9.4-12.3); Monocytes Absolute Auto 0.5 X10*3/uL (0.1-1.2); Monocytes Percent Auto 9.9 % (2-11); Platelet Count 307 X10*3/uL (160-400); Red Blood Count 3.51 X10*6/uL (4.20-5.50); Red Cell Distribution Width 15.7 % (11.0-16.0); White Blood Count 5.4 X10*3/uL (4.8-10.8)
[2023-12-31 15:09] LABS: Microalbum/Creatinine Ratio Ur 59.1 ug/mg cr (<30)
[2023-12-31 15:19] LABS: Alanine Aminotransferase 17 U/L (0-31); Albumin Level 3.8 g/dL (3.5-5.0); Alkaline Phosphatase 70 U/L (39-117); Anion Gap 15 (12-20); Aspartate Amino Transferase 16 U/L (5-31); Bilirubin Total 0.3 mg/dL (0.0-1.0); Blood Urea Nitrogen 8 mg/dL (9-16); Calcium 8.8 mg/dL (8.4-10.2); Carbon Dioxide 26 mmol/L (22-29); Chloride 92 mmol/L (96-108); Cholesterol 156 mg/dL (<200); Estimated Glomerular Filt Rate > 60; Glucose Random 99 mg/dL (60-115); HDL Cholesterol 65 mg/dL (>40); LDL Cholesterol Calculated 75 mg/dL (<100); Potassium 4.3 mmol/L (3.3-5.1); Sodium 129 mmol/L (135-145); Triglycerides 80 mg/dL (<150)
[2023-12-31 15:29] LABS: Folate 10.1 ng/mL (> or = 4.0); Vitamin B12 316 pg/mL (200-900)
[2024-01-01 04:37] LABS: HIV AB/AG Nonreactive (Nonreactive); HIV Num 1 0.05 S/CO (0.00-0.99); ~HepC Num1 0.08 S/CO (0.00-0.79); ~Hepatitis C Antibody Nonreactive (Nonreactive)
== END 2023-12-31 09:59 | disposition home or self-care (01) ==
LOC: HO.CHCLDS 09:58
PROVIDERS: Visit Provider Family Medicine
DX: E66.01 Morbid (severe) obesity due to excess calories (principal); Z13.9 Encounter for screening, unspecified; Z68.41 Body mass index [BMI] 40.0-44.9, adult
CPT/HCPCS: 36415; 80053; 80061; 82043; 82570; 82607; 82746; 85025; 86803; 87389

== ENCOUNTER 2024-02-15 09:47 | Outpatient (REF) | payer MEDICARE, MEDICAID, SELFPAY ==
[2024-02-15 14:17] LABS: Immature Retic Fraction 32.1 % (3.0-15.9); Reticulocyte Percent 3.1 % (0.5-1.8); Reticulocytes Absolute 0.118 X10*6/uL (0.026-0.095)
[2024-02-15 14:57] LABS: Alanine Aminotransferase 23 U/L (0-31); Albumin Level 3.9 g/dL (3.5-5.0); Alkaline Phosphatase 65 U/L (39-117); Anion Gap 10 (12-20); Aspartate Amino Transferase 21 U/L (5-31); Bilirubin Total 0.2 mg/dL (0.0-1.0); Blood Urea Nitrogen 8 mg/dL (9-16); C Reactive Protein 0.22 mg/dL (< or = 0.50); Calcium 8.8 mg/dL (8.4-10.2); Carbon Dioxide 28 mmol/L (22-29); Chloride 95 mmol/L (96-108); Estimated Glomerular Filt Rate > 60; Glucose Random 106 mg/dL (60-115); Iron 43 mcg/dL (30-160); Percent Iron Saturation 13 % (15-50); Potassium 4.2 mmol/L (3.3-5.1); Sodium 129 mmol/L (135-145); Total Iron Binding Capacity 324 mcg/dL (228-428); Total Protein 6.9 g/dL (6.5-8.0); Unsaturated Iron Binding 281 ug/dL
[2024-02-15 15:14] LABS: Ferritin 9 ng/mL (10-250); TSH reflex Free T4 0.99 uIU/mL (0.32-4.0)
== END 2024-02-15 09:48 | disposition home or self-care (01) ==
LOC: HO.CHCLDS 09:47
PROVIDERS: Visit Provider Family Medicine
DX: D64.9 Anemia, unspecified (principal)
CPT/HCPCS: 36415; 80053; 82728; 83540; 84443; 85045; 86140

== ENCOUNTER 2024-02-18 09:48 | Outpatient (REF) | payer MEDICARE, MEDICAID, SELFPAY ==
[2024-02-18 14:20] LABS: OBS1 NEGATIVE (NEGATIVE); OBS2 NEGATIVE (NEGATIVE)
[2024-02-18 14:21] LABS: OBS Int Ctl Valid YES; OBS Lot 50322; OBS3 NEGATIVE (NEGATIVE)
== END 2024-02-18 09:49 | disposition home or self-care (01) ==
LOC: HO.CHCLNP 09:48
PROVIDERS: Visit Provider Family Medicine
DX: D64.9 Anemia, unspecified (principal)
CPT/HCPCS: 82270

== ENCOUNTER 2024-07-06 12:44 | Outpatient (AMB) | payer MEDICARE, MEDICAID, SELFPAY ==
--- NOTE | 2024-07-06 12:46 | A.OFFVIS_ITS ---
Vital Signs 07/06/24 12:50 Height 5 ft 6 in Weight 252 lb BMI 40.7 BP 127/58 L Blood Pressure Location Lt brachial Position Sitting Pulse 73 Intake Visit Reasons: Diarrhea, heartburn, anemia Intake Note: atient new consult for diarrhea, hearburn and anemia. Patient cc: abdominal pain with bloating, diarrhea, heartburn, and denies any other GI issues. 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 For a month she has been having severe lower abdomen pain/cramping and diarrhea multiple times a day. This corresponds to starting insulin for her diabetes. She has been taking the dicyclomine 10mg qid, so we will increase this and add [id number] qhs. She used only be bothered by greasy foods but now she finds absolutely everything she eats, except fruits, bothers her stomach and causes the cramping and diarrhea.? This is a big change so I think it does have to do with her sugar control and beginning insulin, although I counseling services manager her that insulin is important to her diabetes control and we do not want to vilify that drug and we can easily work around the symptoms. We discussed adding a fiber supplement and the fact that eating only fruits is probably contributing to her diarrheal cycles because of glucose load.? I tell her that there are better fiber options such as oatmeal or brand to control her symptoms.? These also have slower systemic absorption of would be better for her diabetes as long as she is not having a lot of sugar to these foods. She continues on her omeprazole 40mg qd with good control of her GERD. She is also due for screening colonoscopy so the prep and the procedure are all reviewed in explained to her along with the reasons why this needs to be done after age 45. She is agreeable to have the procedure so we will get ordered and I will see her after the procedure as usual. I also and is here in 4 weeks to go over how she is doing with the new medications and the adjustment to her diet.? (2) Abdominal cramping: ?Code(s): R10.9 - Unspecified abdominal pain (3) GERD (gastroesophageal reflux disease): ?Code(s): K21.9 - Gastro-esophageal reflux disease without esophagitis (4) Colon cancer screening: ?Code(s): Z12.11 - Encounter for screening for malignant neoplasm of colon ? ? ? Orders:?Orders Comprehensive Met. Panel 07/01/21 Z12.11 - Encounter for screenin g for malignant neoplasm of colon ? TSH reflex Free T4 07/01/21 Z12.11 - Encounter for screenin g for malignant neoplasm of colon ? Complete Blood Count Auto Diff 07/01/21 Z12.11 - Encounter for screenin g for malignant neoplasm of colon ? Medications:?New dicyclomine 20 mg? PO QID 30 days 120 tabs 6RF R10.9 - Unspecified abdominal pain ? imipramine HCl 10 mg? PO BEDTIME 30 days 30 tabs 6RF K5 8.0 - Irritable bowel syndrome with diarrhea, R10.9 - Unspecified abdominal pain ? peg 3350-electrolytes 236-22.74-6.74 -5.86 gram (Golytely) ?? until fecal effluent is clear; do not exceed a total volume of 2,000 mL 240 mL? PO Q10M 1 day 4,000 mL 0RF Z12.11 - Encounter for screening for malignant neoplasm of colon ? Discontinued dicyclomine ?? Discontinued Reason:? Doctor's Order 10 mg? PO QID 30 days 120 caps 6RF R10.9 - Unspecified abdominal pain ? LABS: COLONOSCOPY Findings: Terminal Ileum-normal, unable to take biospy due to unstable position random colon bx taken to r/o microscopic colitis Cecum:normal Ascending Colon: normal Transverse Colon -normal Descending Colon:normal Sigmoid Colon:? normal Rectum: Retroflexion with small internal hemorrhoids, grade I Anorectum - normal Impression and Post Procedure Diagnosis: internal hemorrhoids Plan: High fiber diet leaflet Avoid straining at stool, epsom salts and sitz bath, anusol supps or cream Repeat Colonoscopy in 10 years or earlier if clinically indicated if bx neg and ongoing sx of post prandial diarrhea then consider EGD BIOPSY Received: 08/19/21 Diagnosis Colon, random, biopsy:? Colonic mucosa within normal limits. PMX Asthma CHALO Diabetes TODAYS VISIT [place]z # Ingrid Live PATIENT HAS BEEN LOST TO FOLLOW-UP SINCE 02/2021 Patient is on Trulicity It appears she has been sent back to our service for a variety of GI complaints. She is having stomach pain and HB. Her stooling with only occasional diarrhea. She recently had significant anemia - will get EGD. FHX GB disease in sister, getting US. Restart meds (she does not know meds well) bring all med list to next visit. I am restarting her dicyclomine and imipramine and changing her from omeprazole to pantoprazole to avoid any possible diarrheal class affect. ROV 4 weeks. [facility] Medical History Asthma Depression Diabetes Epilepsy GERD (gastroesophageal reflux disease) HTN (hypertension) IBS (irritable bowel syndrome) Sleep apnea Surgical History S/P panniculectomy History of carpal tunnel release Hx of tubal ligation History of nasal surgery History of ear surgery Family History Father Diabetes Mother Alzheimers disease HTN (hypertension) Social History Alcohol intake: unknown Patient Tobacco Use Status: Former Tobacco user Tobacco use type: Cigarette Current occupational status: unemployed Current occupation: right hand dominant Review of Systems Const Denies fatigue, Denies fever(s), Denies night sweats, Denies poor appetite and Denies weight loss ENT Reports Normal hearing present, Denies dysphagia, Denies odynophagia, Denies throat swelling and Denies tongue swelling Card Reports no additional complaints Resp Reports no additional complaints GI Details: Reports abdominal pain, Denies melena, Denies bloating, Denies hematochezia, Denies constipation, Reports GI cramping, Denies dysphagia, Denies excessive flatus, Denies early satiety, Reports heartburn, Reports diarrhea, Denies nausea, Denies odynophagia, Denies vomiting and Denies hematemesis Skin/Breast Denies pruritus, Denies lesions, Denies rash and Denies jaundice Neuro Reports Normal hearing present and Denies Abnormal speech present Endo Denies fatigue Aller/Immun Denies throat swelling and Denies tongue swelling Physical Exam Vital Signs: Last Vital Signs Pulse 73 07/06/24 12:50 BP 127/58 L 07/06/24 12:50 BMI result Body Mass Index 40.7 Const General: cooperative, no acute distress, well developed and well groomed Nutritional Appearance: well nourished and obese Orientation/consciousness: oriented to person, oriented to place and oriented to time Limitations: language barrier HEENT Head: Yes normocephalic and Yes atraumatic Eyes General: appearance normal, both eyes and all related structures Pupils: Equal, round and reactive pupils present Neck Neck: Yes normal visual inspection and Yes no lymphadenopathy Thyroid: Thyroid normal Resp Effort & Inspection: normal respiratory effort and able to speak in complete sentences Auscultation: clear to auscultation bilaterally Cardio Rate: regular rate Rhythm: regular rhythm Heart sounds: Normal, physiologic split S2 sound present Peripheral pulses: radial pulses present and posterior tibial pulses present GI Inspection: No distended, Yes Abdominal panniculus present and Yes obesity Palpation (GI): Soft to palpation, nontender, no guarding, not rigid and No hepatosplenomegaly present Percussion: Yes normal to percussion Auscultation: normal bowel sounds Rectal Exam - Female: deferred Skin General skin exam: no rashes or lesions noted, turgor normal, skin not dry, no jaundice, No spider nevi and no striae Rashes: no rashes Nails: normal Neuro General: oriented to person, oriented to place and oriented to time Cranial nerves: Yes Equal, round and reactive pupils present and Yes Normal hearing present Speech: No Abnormal speech present Extrem General: Yes normal to inspection, No clubbing, No cyanosis and No edema Psych Appearance: grossly normal and well kempt Mental Status: mental status grossly normal Speech and movement: Normal speech and movement present Affect: normal affect Attitude: cooperative Thought process: Normal thought process present and not confabulating Thought content: Normal thought content present Insight: Limited insight present (Psych) Judgement: Limited judgement present (Psych) Assessment & Plan Assessment & Plan (1) GERD (gastroesophageal reflux disease): Code(s): K21.9 - Gastro-esophageal reflux disease without esophagitis Category: Medical (2) Upper abdominal pain: Code(s): R10.10 - Upper abdominal pain, unspecified Category: Medical (3) Irritable bowel syndrome with diarrhea: Code(s): K58.0 - Irritable bowel syndrome with diarrhea Category: Medical Plan [place] # Ingrid Live PATIENT HAS BEEN LOST TO FOLLOW-UP SINCE 02/2021 Patient is on Trulicity It appears she has been sent back to our service for a variety of GI complaints. She is having stomach pain and HB. Her stooling with only occasional diarrhea. She recently had significant anemia - will get EGD. FHX GB disease in sister, getting US. Restart meds (she does not know meds well) bring all med list to next visit. I am restarting her dicyclomine and imipramine and changing her from omeprazole to pantoprazole to avoid any possible diarrheal class affect. ROV 4 weeks. Orders: Orders US abdomen complete 07/06/24 R10.10 - Upper abdominal pain, unspecified EGD - GI Use Only 07/06/24 R10.10 - Upper abdominal pain, unspecified, D64.9 - Anemia, unspecified Medications: New pantoprazole 40 mg PO DAILY 30 tabs 6RF K21.9 - Gastro-esophageal reflux disease without esophagitis Refilled imipramine HCl 10 mg PO BEDTIME 30 tabs 6RF 30 days K58.0 - Irritable bowel syndrome with diarrhea, R10.9 - Unspecified abdominal pain dicyclomine 20 mg PO BID 120 tabs 5RF for cramps R10.9 - Unspecified abdominal pain Coding Level of Care Code Est Pt Level 3 (88712) Diagnoses GERD (gastroesophageal reflux disease) K21.9 Upper abdominal pain R10.10 Irritable bowel syndrome with diarrhea K58.0
[2024-07-06 12:50] VITALS: BP 127/58; PULSE 73; BMI 40.7
== END 2024-07-06 13:20 | disposition home or self-care (01) ==
PROVIDERS: PCP Family Medicine; Visit Provider Nurse Practitioner
DX: K21.9 Gastro-esophageal reflux disease without esophagitis (principal); R10.10 Upper abdominal pain, unspecified; K58.0 Irritable bowel syndrome with diarrhea
CPT/HCPCS: 99213

== ENCOUNTER → 2024-07-06 12:44 | Outpatient (BNVA) | payer MEDICARE, SELFPAY | PROVIDERS: PCP Family Medicine; Visit Provider Nurse Practitioner | DX: K21.9 Gastro-esophageal reflux disease without esophagitis (principal); K58.0 Irritable bowel syndrome with diarrhea; D64.9 Anemia, unspecified; R10.9 Unspecified abdominal pain; R10.10 Upper abdominal pain, unspecified | CPT/HCPCS: 99212 ==

== ENCOUNTER 2024-07-18 12:39 | Outpatient (REF) | payer MEDICARE, MEDICAID, SELFPAY ==
[2024-07-21 02:18] LABS: TS Negative Control Passed; TS Panel A 1; TS Panel B 0; TS Positive Control Passed; TSpotTB Negative (Negative)
== END 2024-07-18 12:40 | disposition home or self-care (01) ==
LOC: HO.CHCLDS 12:39
PROVIDERS: Visit Provider Family Medicine
DX: Z11.1 Encounter for screening for respiratory tuberculosis (principal)
CPT/HCPCS: 36415; 86481

== ENCOUNTER 2024-07-28 08:56 | Outpatient (REF) | payer MEDICARE, MEDICAID, SELFPAY ==
--- NOTE | ~2024-07-28 | US_ITS ---
EXAMINATION: US ABDOMEN COMPLETE CLINICAL INFORMATION: Upper abdominal pain, unspecified. COMPARISON: None available. TECHNIQUE: Real-time imaging of the abdominal viscera. Technically difficult study secondary to bowel gas and body habitus. FINDINGS: PANCREAS: The visualized portion of the pancreas head and body are normal, portion of the pancreatic body and tail, not visualized are obscured by bowel gas. ABDOMINAL AORTA: Abdominal aorta not visualized obscured. INFERIOR VENA CAVA: Visualized portions are normal. LIVER: Increased echogenicity of the liver parenchyma, this can be seen in the setting of hepatic steatosis or liver parenchymal disease. The liver contour is normal. No focal hepatic lesion. There is no intrahepatic biliary duct dilatation seen. GALLBLADDER: Normal. The gallbladder is physiologically distended without evidence of stones, sludge, polyps, wall thickening or pericholecystic fluid. COMMON BILE DUCT: Normal in caliber measuring 0.4 cm in diameter. RIGHT KIDNEY: Normal. No hydronephrosis. No renal calculi or focal parenchymal lesions. The kidney measures 10.9 cm in maximum dimension. LEFT KIDNEY: Normal. No hydronephrosis. No renal calculi or focal parenchymal lesions. The kidney measures 9.5 cm in maximum dimension. SPLEEN: Normal. The spleen measures 11.2 cm in maximum dimension. FREE FLUID: None. US/US abdomen complete IMPRESSION: 1. No ultrasound evidence of gallbladder disease or gallstones. 2. Increased echogenicity of the liver parenchyma, this can be seen in the setting of hepatic steatosis or liver parenchymal disease. 3. Abdominal aorta and most of the pancreas not visualized obscured by bowel gas. Electronically signed by: Dusty Allen MD 09/15/2024 10:23 AM TIFFANY
== END 2024-07-28 08:57 | disposition home or self-care (01) ==
LOC: HO.US 08:56
PROVIDERS: PCP Family Medicine; Visit Provider Nurse Practitioner
DX: R10.10 Upper abdominal pain, unspecified (principal)
CPT/HCPCS: 76700

== ENCOUNTER 2024-11-11 10:22 | Outpatient (REF) | payer MEDICARE, MEDICAID, SELFPAY ==
[2024-11-11 10:44] LABS: MANUAL DIFF FLAG NO
[2024-11-11 11:07] LABS: Basophils Percent Auto 0.4 % (0-2); Eosinophils Absolute Auto 0.3 X10*3/uL (0.0-0.4); Eosinophils Percent Auto 3.4 % (0-4); Hematocrit 32.9 % (37.0-47.0); Hemoglobin 11.4 g/dl (12.0-16.0); Imm Gran Abs Auto 0.04 X10*3/uL (0.00-0.03); Imm Gran Pct Auto 0.5 % (0.0-0.4); Lymphocytes Absolute Auto 2.1 X10*3/uL (1.2-4.9); Lymphocytes Percent Auto 26.6 % (20-40); Mean Corpuscular HGB Conc 34.7 g/dl (31.0-35.0); Mean Corpuscular Hemoglobin 32.5 pg (27.0-33.0); Mean Corpuscular Volume 93.7 fL (80.0-98.0); Mean Platelet Volume 8.8 fL (9.4-12.3); Monocytes Absolute Auto 0.6 X10*3/uL (0.1-1.2); Monocytes Percent Auto 7.9 % (2-11); Neutrophils Absolute Auto 4.8 x10*3/uL (2.0-8.3); Neutrophils Percent Auto 61.2 % (45-73); Platelet Count 321 X10*3/uL (160-400); Red Blood Count 3.51 X10*6/uL (4.20-5.50); Red Cell Distribution Width 12.1 % (11.0-16.0); White Blood Count 7.9 X10*3/uL (4.8-10.8)
[2024-11-11 12:19] LABS: Vitamin B12 248 pg/mL (200-900)
[2024-11-11 13:31] LABS: Alanine Aminotransferase 22 U/L (0-31); Albumin Level 4.2 g/dL (3.5-5.0); Anion Gap 15 (12-20); Aspartate Amino Transferase 30 U/L (5-31); Bilirubin Total 0.3 mg/dL (0.0-1.0); Blood Urea Nitrogen 11 mg/dL (9-16); Calcium 8.2 mg/dL (8.4-10.2); Carbon Dioxide 27 mmol/L (22-29); Chloride 95 mmol/L (96-108); Estimated Glomerular Filt Rate > 60; Ferritin 58 ng/mL (10-250); Glucose Random 126 mg/dL (60-115); Potassium 4.6 mmol/L (3.3-5.1); Sodium 132 mmol/L (135-145); Total Protein 8.1 g/dL (6.5-8.0)
[2024-11-11 14:19] LABS: Alkaline Phosphatase 81 U/L (39-117)
== END 2024-11-11 10:23 | disposition home or self-care (01) ==
LOC: HO.LAB 10:22
PROVIDERS: PCP Family Medicine; Visit Provider Internal Medicine Gastroenterology
DX: D64.9 Anemia, unspecified (principal); K58.0 Irritable bowel syndrome with diarrhea
CPT/HCPCS: 36415; 80053; 82607; 82728; 82746; 85025

== ENCOUNTER 2024-11-17 07:54 | Day surgery (SDC) | payer MEDICARE, MEDICAID, SELFPAY ==
[2024-11-15 14:32] VITALS: BMI 40.7
--- NOTE | 2024-11-16 10:47 | HO.ANESPROP2 ---
Documented by User: Nikki Andino NP 11/16/24 10:49 HPI - Anesthesia Eval Consult details Narrative: 54yo F for Upper Endoscopy Anesthesia Pre-Procedure Meds Is the patient on any of the following meds?: GLP1/DPP4 PMFSH Active Problems Active Problems: All Active Problems Anemia (Acute) Upper abdominal pain (Acute) Fracture of medial epicondyle of humerus (Acute) Colon cancer screening (Acute) Irritable bowel syndrome with diarrhea (Acute) Abdominal cramping (Acute) GERD (gastroesophageal reflux disease) (Acute) Past Medical History Medical History Epilepsy HTN (hypertension) Depression Sleep apnea Asthma Diabetes IBS (irritable bowel syndrome) GERD (gastroesophageal reflux disease) Family History Family History Father Diabetes Mother Alzheimers disease HTN (hypertension) Surgical History Surgical History H/O colonoscopy S/P panniculectomy History of carpal tunnel release Hx of tubal ligation History of nasal surgery History of ear surgery Social History Social History Alcohol intake: unknown Patient Tobacco Use Status: Former Tobacco user Tobacco use type: Cigarette Have you been hit, kicked, punched, or otherwise hurt by someone within the past year? If so, by whom?: No Are you DNR?: No Advance Directives: No Advance Directives Information Provided: Yes Current occupational status: unemployed Current occupation: right hand dominant Meds Allergies Allergy/AdvReac Type Severity Reaction Status Date / Time doxepin Allergy Intermediate Nightmare Verified 07/06/24 12:49 vaccine adjuvant system, Allergy Intermediate Itching/chalo Verified 07/06/24 12:49 AS01B lipo h [From Shingrix (PF)] varicella-zoster virus Allergy Intermediate Itching/chalo Verified 07/06/24 12:49 glycoprotein h [From Shingrix (PF)] Home Medications ?Medication ?Instructions ?Recorded ?Confirmed ?Last Taken ?Type albuterol sulfate 90 mcg/actuation 2 puff inhalation Q6H PRN Wheezing 12/27/20 08/13/21 11/16/24 History aerosol inhaler (ProAir HFA) atorvastatin 80 mg tablet 80 mg PO DAILY 12/27/20 11/15/24 11/16/24 History cholecalciferol (vitamin D3) 50 50 mcg PO DAILY 12/27/20 11/15/24 11/16/24 History mcg (2,000 unit) capsule darifenacin 15 mg tablet,extended 15 mg PO DAILY 12/27/20 08/13/21 11/16/24 History release 24 hr glipizide 5 mg tablet 5 mg PO DAILY 12/27/20 11/15/24 11/16/24 History insulin glargine 100 unit/mL (3 6 unit subcut QPM 12/27/20 11/15/24 11/16/24 History mL) subcutaneous pen (Lantus Solostar U-100 Insulin) loratadine 10 mg tablet (Allergy 10 mg PO DAILY 12/27/20 11/15/24 11/16/24 History Relief (loratadine)) melatonin 5 mg capsule 5 mg PO BEDTIME 12/27/20 11/15/24 11/16/24 History metformin 1,000 mg tablet 1,000 mg PO BID 12/27/20 11/15/24 11/16/24 History mometasone 50 mcg/actuation nasal 2 spray intranasal DAILY 12/27/20 11/15/24 Unknown History spray (Nasonex) trazodone 50 mg tablet 50 mg PO DAILY 12/27/20 11/15/24 11/16/24 History oxcarbazepine 600 mg tablet 600 mg PO QAM 07/01/21 11/15/24 11/16/24 History propranolol 20 mg tablet 20 mg PO BID 07/01/21 11/15/24 11/16/24 History citalopram 20 mg tablet 1 tab PO DAILY 08/13/21 11/15/24 11/16/24 History dulaglutide 1.5 mg/0.5 mL 0.5 ml subcut QWEEK 08/13/21 11/15/24 11/02/24 History subcutaneous pen injector (Trulicity) fluticasone propionate 44 2 puff PO BID 08/13/21 08/13/21 Unknown History mcg/actuation HFA aerosol inhaler (Flovent HFA) lisinopril 20 mg tablet 1 tab PO DAILY 08/13/21 11/15/24 11/16/24 History oxcarbazepine 600 mg tablet 1,200 mg PO BEDTIME 08/13/21 11/15/24 11/16/24 History cyclobenzaprine 5 mg tablet 5 mg PO BEDTIME 06/29/23 11/15/24 11/16/24 History fluticasone furoate 50 1 inh inhalation DAILY 11/15/24 11/15/24 11/16/24 History mcg/actuation blister powder for inhalation (Arnuity Ellipta) Exam Height,Weight and Vital Signs: Height 5 ft 6 in Weight 114.305 kg Pertinent Lab Results Pertinent Lab Results: Laboratory Tests 11/11/24 10:42 WBC 7.9 Hgb 11.4 L D Hct 32.9 L Plt Count 321 Sodium 132 L Potassium 4.6 Chloride 95 L Carbon Dioxide 27 BUN 11 Creatinine 0.58 Assessment and Plan Assessment Anesthesia Assessment: Chart Reviewed Documented by User: Rachel Murrieta MD 11/17/24 09:50 HPI - Anesthesia Eval Anesthesia Pre-Procedure Meds Is the patient on any of the following meds?: GLP1/DPP4 (Last dose 11/02/24) PMFSH Active Problems Active Problems: All Active Problems Anemia (Acute) Upper abdominal pain (Acute) Fracture of medial epicondyle of humerus (Acute) Colon cancer screening (Acute) Irritable bowel syndrome with diarrhea (Acute) Abdominal cramping (Acute) GERD (gastroesophageal reflux disease) (Acute) CHALO. Not using CPAP because cannot tolerate Asthma. Not using inhalers as prescribed daily Past Medical History Medical History Epilepsy HTN (hypertension) Depression Sleep apnea Asthma Diabetes IBS (irritable bowel syndrome) GERD (gastroesophageal reflux disease) Family History Family History Father Diabetes Mother Alzheimers disease HTN (hypertension) Family history of problems with anesthesia: No Surgical History Surgical History H/O colonoscopy S/P panniculectomy History of carpal tunnel release Hx of tubal ligation History of nasal surgery History of ear surgery History of Problems with Anesthesia: No Social History Social History Alcohol intake: unknown Patient Tobacco Use Status: Former Tobacco user Tobacco use type: Cigarette Have you been hit, kicked, punched, or otherwise hurt by someone within the past year? If so, by whom?: No Are you DNR?: No Advance Directives: No Advance Directives Information Provided: Yes Current occupational status: unemployed Current occupation: right hand dominant Meds Allergies Allergy/AdvReac Type Severity Reaction Status Date / Time doxepin Allergy Intermediate Nightmare Verified 07/06/24 12:49 vaccine adjuvant system, Allergy Intermediate Itching/chalo Verified 07/06/24 12:49 AS01B lipo h [From Shingrix (PF)] varicella-zoster virus Allergy Intermediate Itching/chalo Verified 07/06/24 12:49 glycoprotein h [From Shingrix (PF)] Home Medications ?Medication ?Instructions ?Recorded ?Confirmed ?Last Taken ?Type albuterol sulfate 90 mcg/actuation 2 puff inhalation Q6H PRN Wheezing 12/27/20 08/13/21 11/16/24 History aerosol inhaler (ProAir HFA) atorvastatin 80 mg tablet 80 mg PO DAILY 12/27/20 11/15/24 11/16/24 History cholecalciferol (vitamin D3) 50 50 mcg PO DAILY 12/27/20 11/15/24 11/16/24 History mcg (2,000 unit) capsule darifenacin 15 mg tablet,extended 15 mg PO DAILY 12/27/20 08/13/21 11/16/24 History release 24 hr glipizide 5 mg tablet 5 mg PO DAILY 12/27/20 11/15/24 11/16/24 History insulin glargine 100 unit/mL (3 6 unit subcut QPM 12/27/20 11/15/24 11/16/24 History mL) subcutaneous pen (Lantus Solostar U-100 Insulin) loratadine 10 mg tablet (Allergy 10 mg PO DAILY 12/27/20 11/15/24 11/16/24 History Relief (loratadine)) melatonin 5 mg capsule 5 mg PO BEDTIME 12/27/20 11/15/24 11/16/24 History metformin 1,000 mg tablet 1,000 mg PO BID 12/27/20 11/15/24 11/16/24 History mometasone 50 mcg/actuation nasal 2 spray intranasal DAILY 12/27/20 11/15/24 Unknown History spray (Nasonex) trazodone 50 mg tablet 50 mg PO DAILY 12/27/20 11/15/24 11/16/24 History oxcarbazepine 600 mg tablet 600 mg PO QAM 07/01/21 11/15/24 11/16/24 History propranolol 20 mg tablet 20 mg PO BID 07/01/21 11/15/24 11/16/24 History citalopram 20 mg tablet 1 tab PO DAILY 08/13/21 11/15/24 11/16/24 History dulaglutide 1.5 mg/0.5 mL 0.5 ml subcut QWEEK 08/13/21 11/15/24 11/02/24 History subcutaneous pen injector (Trulicity) fluticasone propionate 44 2 puff PO BID 08/13/21 08/13/21 Unknown History mcg/actuation HFA aerosol inhaler (Flovent HFA) lisinopril 20 mg tablet 1 tab PO DAILY 08/13/21 11/15/24 11/16/24 History oxcarbazepine 600 mg tablet 1,200 mg PO BEDTIME 08/13/21 11/15/24 11/16/24 History cyclobenzaprine 5 mg tablet 5 mg PO BEDTIME 06/29/23 11/15/24 11/16/24 History fluticasone furoate 50 1 inh inhalation DAILY 11/15/24 11/15/24 11/16/24 History mcg/actuation blister powder for inhalation (Arnuity Ellipta) Exam Height,Weight and Vital Signs: Height 5 ft 6 in Weight 114.305 kg Vital Signs Temp Pulse Resp BP Pulse Ox O2 Del Method 11/17/24 08:34 97.4 F 76 18 146/62 H 96 Room Air Pertinent Lab Results Pertinent Lab Results: Laboratory Tests 11/11/24 10:42 WBC 7.9 Hgb 11.4 L D Hct 32.9 L Plt Count 321 Sodium 132 L Potassium 4.6 Chloride 95 L Carbon Dioxide 27 BUN 11 Creatinine 0.58 Lab Results 11/17/24 Range/Units 08:39 POC Glucose 150 H (60-115) mg/dL Airway Mallampati Class: III TM Dist: >3cm Neck ROM: Full (but always sore) Loose/Missing/Broken Teeth: Yes (Edentulous) Heart: RRR Lungs: CTAB Assessment and Plan Assessment Anesthesia Assessment: Anesthesia Plan Discussed and Chart Reviewed Final Anesthetic Review Family History of Problems with Anesthesia: No History of Problems with Anesthesia: No NPO: Yes ASA Class: III Final Preanesthetic Review: No Changes in Pt Med Stat, Meds/Allgs Chart Reviewed, Consent Obtained/Reviewed and Anes Risks/Benef Reviewed Patient Risk: Intermediate Procedure Risk: Low Assessment/Block/Sedation in SS: Assess/Block/Sedation-SS Anesthetic Plan Anesthetic Plan: TIVA Disposition: Standard PACU
[2024-11-17 08:34] VITALS: BP 146/62; PULSE 76; RESP 18; TEMP 36.3; O2SAT 96; BMI 41.4
[2024-11-17 08:49] LABS: Glucose, Whole Blood 150 mg/dL (60-115)
--- NOTE | 2024-11-17 09:03 | MHC.SHP ---
Pre-Procedural Eval Section A - 24 Hr Update-Section A only Date of Service: 11/17/24 Section B - Complete if H&P > 30 days Chief Complaint: gerd,anemia,upper abdominal pain Relevant Family History (Specify if Yes): No Relevant Social History: None Present Medications: None Medical History: Significant History (Epilepsy HTN (hypertension) Depression Sleep apnea Asthma Diabetes IBS (irritable bowel syndrome) GERD (gastroesophageal reflux disease)) History of Previous Operations: Relevant previous surgery/procedure and date(s) (H/O colonoscopy S/P panniculectomy History of carpal tunnel release Hx of tubal ligation History of nasal surgery History of ear surgery) Allergies: Allergies Allergy/AdvReac Type Severity Reaction Status Date / Time doxepin Allergy Intermediate Nightmare Verified 07/06/24 12:49 vaccine adjuvant system, Allergy Intermediate Itching/chalo Verified 07/06/24 12:49 AS01B lipo h [From Shingrix (PF)] varicella-zoster virus Allergy Intermediate Itching/chalo Verified 07/06/24 12:49 glycoprotein h [From Shingrix (PF)] Review of Systems Sugical H&P ROS: Negative: Constitution, Cardiovascular, Respiratory, Neurological, Psychiatric, Hem-Onc, Allergic/Immunologic, Gastrointestinal, Genitourinary, Musculoskeletal, Integumentary, Endocrine and Eyes/Ears/Nose/Throat Exam Surgical H&P Exam: Normal: HEENT, Normal: Heart, Normal: Lungs, Normal: Extremities, Normal: Abdomen, Normal: Skin and Normal: Neurological Plan Diagnosis/Plan: Unchanged I have reviewed the history and physical and performed a pertinent physical examination on my patient. No changes have occurred unless specified. Time Spent With Patient Time: Total time managing care of this patient today ____ minutes.
[2024-11-17] MEDS: Lactated Ringers 1,000 ML 100 ML IVCONT (09:04)
--- NOTE | 2024-11-17 10:01 | W.PM.OPN ---
Operative Note Operative Note Date of Service: 11/17/24 Narrative: Procedure Description: EGD Indication: epigastric pain Anesthesia: MAC FLEXIBLE TRANSORAL UPPER GASTROINTESTINAL ENDOSCOPY UPPER ENDOSCOPY Consent: Indications for the procedure and potential complications of bleeding, perforation, reaction to medications and missed diagnosis were discussed with the patient and informed consent was obtained. Instrument: Olympus GIF H 190 J mid size upper endoscope Monitoring: Vital signs and clinical assessment, continuous EKG monitoring, Pulse oximetry, Carbon Dioxide monitoring and blood pressure monitoring were done throughout the procedure. Procedure: The patient was placed in the left lateral decubitis position and pre-procedure medications were administered and a bite block was placed. The endoscope was inserted into the mouth and advanced under direct vision to the third part of duodenum. A careful inspection was made as the upper endoscope was withdrawn including a retroflexed examination of the proximal stomach; Findings and interventions are described below. Findings: Larynx:normal Esophagus: GE junction at 40 cm, diaphragm hiatus at 40 cm, normal mucosa Stomach: partial erythema. Biopsies were obtained. Grade 2 flap valve on retroflexed examination of the cardia. Duodenum: patchy erythema appears consistent with peptic injury, bx taken Intervention: Biopsies as noted above, Impression/Findings: gastritis duodenitis PLAN: await bx, if h pylori pos then treat, advised to cut back on nsaid and compliance with PPI, and CPAP GERD precautions
[2024-11-17 10:07] VITALS: BP 172/77; PULSE 80; RESP 16; TEMP 36.2; O2SAT 100
[2024-11-17 10:22] VITALS: BP 152/78; PULSE 73; RESP 16; TEMP 36.2; O2SAT 97
--- OUTSIDE RECORDS SUMMARY | 2024-11-17 10:51 | XMS_ITS | Encounter Summary ---
Author Organization [employer] Address [address] [place] [address] Care Team Providers Care Schedule Hanger Name Role Phone Ingrid Clemens MD Primary Care Provider [phone] Encounter Details Date Type Department Care Team (Late st Contact Info) Description 09/03/2023 Abstract [facility] MEDICINE [address] [place] [address] Noemy Monsalve Social History Tobacco Use Types Packs/Day Years Used Date Smoking Tobacco: Never Passive Smoke Exposure: Never Smokeless Tobacco: Never Alcohol Use Standard Drinks/Week Comments Never 0 (1 standard drink = 0.6 oz pur e alcohol) Depression Answer Date Recorded Patient Health Questionnaire-9 Score 8 12/24/2022 Housing Stability Answer Date Recorded What is your housing situation today? I have marc denise 08/03/[address] you li ve. Do you have problems with any of the following? None of the above 08/03/2023 Food Insecurity Answer Date Recorded Within the past 12 months, y ou worried that your food would run out before you got money to buy more: Never True 08/03/2023 Within the past 12 months,th e food you bought just didn't last and you didn't have enough money to get more: Never True Transportation Answer Date Recorded In the past 12 months, has l ack of transportation kept you from medical appts, meetings, work or from getting things needed for daily living? No 08/03/2023 Utilities Answer Date Recorded In the past 12 months, has t he electric, gas, oil or water company threatened to shut off services in your home? No 08/03/2023 Depression Answer Date Recorded Patient Health Questionnaire-2 Score 1 12/24/2022 Comments Unknown Sex and Gender Information Value Date Recorded Sex Assigned at Female 08/18/2022 10:14 AM EDT Legal Sex Female 10:14 AM EDT Gender Identity Female 08/18/2022 10:14 AM EDT Sexual Orientation Straight 08/18/2022 10 :14 AM EDT documented as of this encounter Plan of Treatment Not on file documented as of this encounter Goals Goal Patient Goal Type Associated Problems Recent Progress Patient-Stated? Author Blood Pressure < 140/90 Blood Pressure 154/80(2023 9:18 AM EST) No Dillon Askew Hemoglobin A1c < 7 Result Component 7.4( 9:08 AM EDT) No Dillon Askew documented as of this encounter Procedures Procedure Name Priority Date/Time Associated Diagnosis Comments COLONOSCOPY Routine 08/19/2021 documented in this encounter Results * Hm Colonoscopy (08/19/2021) Colonoscopy Normal Normal Narrative Noemy Monsalve - 08/19/2021 Recommended 10 year follow up us Historical Provider HEALTH MAINTENANCE Final Result documented in this encounter Visit Diagnoses Not on filedocumented in this encounter Additional Health Concerns Assessment Noted Time PHQ-9 Depression Total Score: 8 12/25/19 23 10:37 AM EST documented as of this encounter Care Teams Schedule Hanger Relationship Specialty Start Date End Date Ingrid Clemens MD [address] [place] [id number] PCP - General Family Medicine 11/28/20 documented as of this encounter
--- OUTSIDE RECORDS SUMMARY | 2024-11-17 10:51 | XMS_ITS | Encounter Summary ---
Author Organization [employer] Address [address] [place] [address] Care Team Providers Care Carrier Blower Name Role Phone Ingrid Clemens MD Primary Care Provider [phone] Encounter Details Date Type Department Care Team ([facility] st Contact Info) Description 06/27/2024 Telephone [facility] MEDICINE [address] [place] [address] Ingrid Clemens MD [address] [place], [place] [id number] Social History Tobacco Use Types Packs/Day Years Used Date Smoking Tobacco: Never Passive Smoke Exposure: Never Smokeless Tobacco: Never Alcohol Use Standard Drinks/Week Comments Never 0 (1 standard drink = 0.6 oz pur e alcohol) Depression Answer Date Recorded Patient Health Questionnaire-9 Score 3 02/22/2024 Patient Health Questionnaire-9 Score 3 02/22/2024 Last PHQ-9: Questionnaire Data Not on file 0 02/22/2024 Housing Stability Answer Date Recorded What is [...] Answer Date Recorded Patient Health Questionnaire-2 Score 2 02/22/2024 Comments Unknown Sex and Gender Information Value [...] Dillon Askew documented as of this encounter Visit Diagnoses Not on filedocumented in this encounter Additional Health Concerns Assessment Noted Time PHQ-9 Depression Total Score: 3 02/22/20 24 10:37 AM EDT documented as of this encounter Care Teams Carrier Blower Relationship Specialty Start Date End Date Ingrid Clemens MD [address] [place] [address] PCP - General Family Medicine 11/28/20 documented as of this encounter
--- OUTSIDE RECORDS SUMMARY | 2024-11-17 10:51 | XMS_ITS | Clinical Summary ---
Author Organization [employer] Address [address] [place] [address] [address] [place] [address] Care Team Providers Care Manager Data Warehouse Name Role Phone Ingrid Clemens MD Primary Care Provider Allergies Active Allergy Reactions Criticality Noted Date Comments Doxepin Other 10/23/2022 Nightmares Zoster Vaccine Recombinant, Adjuvanted Itching,Rash Low 06/04/2020 Medications dicyclomine (Bentyl) 20 MG tablet TAKE ONE TABLET BY MOUTH IN THE MORNING AND EVENING NEEDED FOR CRAMPS 11/17/19 23 Active loperamide (Imodium) 2 MG capsule TAKE ONE OR TWO CAPSULES FOUR TIMES DAILY NEEDED FOR DIARRHEA 04/29/20 23 Active Blood Glucose Monitoring Suppl (FreeStyle Lite) device Inject 1 each under the skin 3 times daily. 1 each 06/08/20 23 Active Continuous Blood Gluc Principal Administrative Clerk (RentMonitorStyle Narciso 2 [place]) device Use 1 CGM sensor to monitor interstitial blood glucose 8 times a day, change sensor every 14 days 1 each 06/29/20 23 Active FREESTYLE LITE test stripIndications: Type 2 diabetes mellitus without complications ([facility]) TEST BLOOD SUGAR THREE TIMES DAILY 100 strip 11 11/11/19 24 Active albuterol 108 (90 Base) MCG/ACT inhaler INHALE TWO PUFFS FOUR TIMES DAILY NEEDED 8.5 g 1 11/20/19 24 Active fluticasone furoate (Arnuity Ellipta) 50 MCG/ACT inhaler Inhale 1 puff in the morning. 1 each 11 11/23/19 24 025 Active simethicone (Gas Relief) 80 MG chewable tablet CHEW ONE TABLET FOUR TIMES DAILY NEEDED 120 tablet 5 11/27/19 24 Active OXcarbazepine (Trileptal) 600 MG tabletIndications :Focal Epilepsy Take 1,200 mg by mouth 2 times daily. Active Acetaminophen Extra Strength 500 MG tablet TAKE TWO TABLETS EVERY 8 HOURS NEEDED FOR PAIN 60 tablet 02/16/20 24 Active loratadine (Claritin) 10 MG tablet TAKE ONE TABLET EVERY MORNING FOR ALLERGIES 90 tablet 3 04/15/20 24 Active ferrous gluconate (Fergon) 324 (37.5 Fe) MG tablet TAKE ONE TABLET EVERY MORNING WITH BREAKFAST 90 tablet 1 04/15/20 24 Active Basaglar KwikPen 100 UNIT/ML penIndications:Ty pe 2 diabetes mellitus without complications ([facility]/HCC) INJECT 40 UNITS SUBCUTANEOUSLY AT BEDTIME 15 mL 3 05/11/20 24 Active insulin pen needle (Comfort EZ Pen [place]) 31G x 5 mm misc USE EVERY DAY WITH lantus 100 each 05/30/20 24 Active pantoprazole (ProtoNix) 40 MG EC tabletIndications :Gastroesophageal reflux disease without esophagitis TAKE ONE TABLET EVERY MORNING HEARTBURN 90 tablet 3 06/08/20 24 Active oxybutynin XL (Ditropan-XL) 5 MG 24 hr tabletIndications :Mixed stress and urge urinary incontinence TAKE ONE TABLET EVERY NIGHT AT BEDTIME (incontinence) 90 tablet 3 06/08/20 24 Active amLODIPine (Norvasc) 5 MG tablet TAKE ONE TABLET EVERY MORNING FOR BLOOD PRESSURE 90 tablet 3 06/08/20 24 Active Continuous Glucose Sensor (FreeStyle Narciso 2 Sensor) miscIndications:T ype 2 diabetes mellitus without complications ([facility]) Use 1 CGM sensor to monitor interstitial blood glucose 8 times a day, change sensor every 14 days 2 each 06/09/20 24 Active propranolol (Inderal) 20 MG tabletIndications :Coronary artery disease, unspecified vessel or lesion type, unspecified whether angina present, unspecified whether [place] or transplanted heart TAKE ONE TABLET IN THE MORNING AND EVENING FOR BLOOD PRESSURE 60 tablet 5 06/30/20 24 Active Easy Touch Lancets 33G/Twist miscIndications:T ype 2 diabetes mellitus without complications ([facility]/HCC) TEST BLOOD SUGAR THREE TIMES DAILY AND NEEDED 200 each 07/06/20 24 Active imipramine (Tofranil) 10 MG tablet TAKE ONE TABLET EVERY NIGHT AT BEDTIME 07/06/20 24 Active ibuprofen 600 MG tablet TAKE ONE TABLET BY MOUTH THREE TIMES DAILY 90 tablet 07/20/20 24 Active sodium chloride 1 g tabletIndications :Hypo-osmolality and hyponatremia TAKE ONE TABLET EVERY MORNING 30 tablet 2 08/15/20 24 Active Dulaglutide (Trulicity) 3 MG/0.5ML solution auto-injectorIndi cations:Type 2 diabetes mellitus without complication, with long-term current use of insulin (CMS/HCC) Inject 3 mg under the skin 1 (one) time per week. 2 mL 3 08/22/20 24 Active lisinopril 40 MG tablet TAKE 1 TABLET EVERY NIGHT AT BEDTIME FOR BLOOD PRESSURE 90 tablet 3 08/29/20 24 Active atorvastatin (Lipitor) 80 MG tablet TAKE ONE TABLET EVERY NIGHT AT BEDTIME (CHOLESTEROL) 90 tablet 1 09/21/20 24 Active traZODone (Desyrel) 100 MG tablet TAKE ONE TABLET EVERY NIGHT AT BEDTIME 90 tablet 1 09/23/20 24 Active metFORMIN (Glucophage) 1000 MG tabletIndications :Type 2 diabetes mellitus with hyperglycemia, unspecified whether nursing home insulin use (CMS/HCC) TAKE ONE TABLET IN THE MORNING AND EVENING WITH MEALS 180 tablet 1 09/23/20 24 Active bismuth subsalicylate (Pepto Bismol) 262 MG chewable tablet Chew 1 tablet if needed each day for indigestion. otc Active SUMAtriptan (Imitrex) 50 MG tablet TAKE 1 TABLET BY MOUTH AT ONSET OF MIGRAINE. MAY REPEAT ONCE AFTER 2 HOURS IF NEEDED 9 tablet 10/06/20 24 Active citalopram (CeleXA) 20 MG tabletIndications :Depressive disorder TAKE ONE TABLET EVERY MORNING (MOOD) 90 tablet 1 10/18/20 24 Active Active Problems Problem Noted Date Diagnosed Date Bunion of great toe 07/28/2024 Intractable migraine without status migrainosus 02/08/2024 Assessment & Plan (02/22/2024 1:52 PM EDT): Continue on iron medication. Referring to Neurologist for further investigation of headaches. Begin Sumatripton for headaches. Called [employer] to verify if referral was received. Advised to call referral department. Assessment & Plan (02/08/2024 1:26 PM EDT): Prescribing Imitrex to relief migraines symptoms. Relevant Medication Sumatripton (Imitrex) 50 MG Tablet Anemia 02/08/2024 Assessment & Plan (02/08/2024 1:23 PM EDT): Ordering Lab work to further investigate root of anemia. Continue medications. Right elbow pain 06/29/2023 Assessment & Plan (06/29/2023 5:12 PM EDT): Patient presented with elbow pain was given Ibuprofen 600 mg TID. Primary hypertension 06/29/2023 Assessment & Plan (06/29/2023 5:11 PM EDT): Patient with a slight elevated blood pressure was advised to keep monitoring BP at home. Medication compliance was recommended. Seizure disorder 04/29/2023 Eye contusion, right, initial encounter 03/17/20 Assessment & Plan (03/17/2023 2:19 PM EDT): Patient with contusion in R eye s/p fall with associated trauma to head and right shoulder. Will send for xray of facial bones to rule out fracture. Denies loss of consciousness or symptoms of concussion. Routine physical examination 12/24/2022 Assessment & Plan (12/24/2022 2:11 PM EST): Elevated BMI, not doing exercise and also not following diet, did recommended for her to speak with dentist to get her dentures fixed. Colon CA screening UTD 08/2021, needs repeat 10 yrs (2030) Pap Smear UTD 06/2021, repeat in 2025 Pending mammography Tuberculosis screening 12/24/2022 Type 2 diabetes mellitus without complications 0 12/04/2022 Assessment & Plan (08/22/2024 10:16 AM EST): Pt has lost 6 pounds since last visit. Decreasing Trulicity to 3 mg due to side effects. Discussed potential uncontrolled BS due to decrease. Agreed to influenza vaccination. Follow up in 3 months. Assessment & Plan (07/11/2024 9:37 AM EDT): Uncontrolled, A1c not at goal. (7.4 07/11/2024; 6.6 on 12/21/2023) Continue with Trulicity, will switch medication pr next visit. Discussed with pt importance of lifestyle modifications for treatment of DM, pt declined seeing a utility pipe layer at this time. Reviewed and updated immunization records. Follow up in 6 weeks for glucose recheck. Advised to call the sensor distributor for sensor replacement. Assessment & Plan (02/08/2024 1:28 PM EDT): Continue current medications. Discussed medication refills as needed. Assessment & Plan (12/22/2023 1:06 AM EST): Controlled: Glucose 174 mg/dL today with A1C at 6.6%. Discontinue Metformin and begin using insulin glargine. Continue monitoring with freestyle 2. Labs: Glucose, HGB A1C Assessment & Plan (06/29/2023 5:13 PM EDT): Lab Results Component Value Date HGBA1C 5.8 06/08/2023 Controlled. Pending monitoring, called pharmacy and switched from freestyle 3 to freestyle 2, pending PA. She is on insulin. Assessment & Plan (06/08/2023 11:01 AM EDT): Controlled. Patient with nausea and vomiting noted x 2 days after administration of trulicity. Advised patient to hold trulicity for 2 weeks. Will follow up in 3 weeks to assess continuation of symptoms and adjust regimen as needed. Assessment & Plan (12/24/2022 2:12 PM EST): Controlled. Patient requesting sensor, did discuss with patient that it will likely not be covered by insurance but she can pay out of pocket. Continue current regimen Viral URI 10/23/2022 Insomnia 05/07/2020 Diabetic retinopathy associa amanda with type 2 diabetes mellitus 04/08/2019 Episodic tension-type headache 11/19/2015 Obstructive sleep apnea syndrome 11/19/2015 Obesity 11/19/2015 Assessment & Plan (12/22/2023 1:05 AM EST): Discussed calorie deficit, recommended reduction of 20-30% of maintenance calories; utility pipe layer referral offered. Recommended to decrease soda and sugary beverage consumption. Recommended at least 20 g per meal of protein to assist with satiety. Recommended at least 150 min/week of moderate intensity exercise. Labs: CBC, Comprehensive Metabolic Panel, Lipid Panel, Albumin, Vitamin B12 Mild intermittent asthma 11/19/2015 Gastroesophageal reflux disease without esophagi tis 11/19/2015 Female stress incontinence 11/19/2015 Depressive disorder 11/19/2015 Body aches 11/19/2015 Allergic rhinitis 11/19/2015 Resolved Problems Problem Noted Date Diagnosed Date Resolved Date Asthma exacerbation, non-all ergic, mild persistent 10/23/2022 02/08/2024 Encounters Date Type Department Care Team Description 11/17/2024 Orders Only GENERIC EXTERNAL DATA DEPARTMENT Provider, Generic External Data 11/11/2024 Orders Only GENERIC EXTERNAL DATA DEPARTMENT Provider, Generic External Data 11/03/2024 Telephone [facility] [address] [place] [phone] Ingrid Clemens MD Call Back Request 10/18/2024 Refill [facility] [address] [place] [address] Ingrid Clemens MD Depressive disorder 10/05/2024 Refill [facility] [address] [place] [address] Ingrid Clemens MD 10/04/2024 9:15 AM EST Office Visit [facility] [address] [place] [address] Rigo Weathers MD H/O verruca vulgaris (Primary Dx) 10/04/2024 Travel 09/26/2024 Telephone [facility] [address] [place] [address] Lakesha Caicedo, PharmD 09/23/2024 Refill [facility] [address] [place] [address] Ingrid Clemens MD Type 2 diabetes mellitus with hyperglycemia, unspecified whether terminal makeup operator insulin use ([facility]) 09/20/2024 Refill [facility] [address] [place] [address] Ingrid Clemens MD 08/26/2024 Refill [facility] [address] [place] [address] Ingrid Clemens MD 08/22/2024 9:15 AM EST Office Visit [facility] [address] [place] [address] Ingrid Clemens MD Type 2 diabetes mellitus without complication, with long-term current use of insulin ([facility]) (Primary Dx); Encounter for immunization 08/22/2024 Travel 08/22/2024 Telephone [facility] [address] [place] [address] Ingrid Clemens MD CHART PREP from Last 3 Months Immunizations Name Administration Dates Next Due Hep A / Hep B 11/03/2011,08/26/2011,03/24/2011 Hep A, Adult 07/18/2013 Hep B, adult 07/18/2013 INFLUENZA INJECTABLE QUADRIV ALANT CCIIV4 MDCK Multi-dose vial 10/04/2021 Influenza injectable quadriv alent IIV4 with preservative 07/22/2016 Influenza injectable quadriv alent preservative free 07/30/2022,07/22/2021,07/18/2019,08/14 Influenza, IIV3, injectable 08/03/2014 Influenza, Split (incl. marianela fied surface antigen) 07/01/2012 Influenza, seasonal, injecta ble, preservative free 08/22/2024 MMR 04/19/2019,03/23/1995 Pfizer Covid-19 Vaccine 12+ 09/27/2024(Deferred: Patient decision) Pneumococcal Conjugate PCV 20 12/21/2023 Pneumococcal Polysaccharide PPSV23 12/14/2000 TD (adult), 2 Lf tetanus tox oid, preservative free, adsorbed 03/25/2005,03/23/1995 Tdap 12/21/2023,02/14/2013 Zoster, Recombinant 05/21/2020,07/18/2019 Social History Tobacco Use Types Packs/Day Years Used Date Smoking Tobacco: Never Passive Smoke Exposure: Never Smokeless Tobacco: Never Tobacco Cessation:Counseling Given: Not Answered Alcohol Use Standard Drinks/Week Comments Never 0 [...] Orientation Straight 08/18/2022 10 :14 AM EDT Last Filed Vital Signs Vital Sign Reading Time Taken Comments Blood Pressure 154/80 10/04/2024 9:18 AM EST Pulse 81 10/04/2024 9:17 AM EST Temperature 36.9 ??C (98.4 ??F) 10/04/2024 9:17 AM ES T Respiratory Rate 20 10/04/2024 9:17 AM EST Oxygen Saturation 98% 10/04/2024 9:17 AM EST Inhaled Oxygen Concentration - - Weight 104 kg (230 lb 2 oz) 10/04/2024 9:[address] Height 165.1 cm (5' 5 ) 10/04/2024 9:17 AM EST Body Mass Index 38.29 10/04/2024 9:17 AM EST Plan of Treatment Health Maintenance Due Date Last Done Comments CT Colonography 1968 FIT DNA/Cologuard 1968 FIT 1968 FOBT 1968 Sigmoidoscopy 1968 Alcohol/Substance Use Screening 1980 Mammogram 01/22/2024 01/21/2023, 10/20, 02/03/2019, Additional history exists Diabetes: Hemoglobin A1C 10/10/2024 024, 12/21/2023, 06/08/2023, Additional history exists Diabetes: Urine Protein Screening 12/30/2024 12/31/2023, 01/13/2023, 07/30/2022, Additional history exists Lipid Panel 12/30/2024 12/31/2023, 12/18, 07/30/2022, Additional history exists Depression Screening 02/21/2025 02/22/2024, 02/22/20 24 SDOH Screening 02/21/2025 02/22/2024 Eye Exam 05/12/2025 05/12/2024 Diabetes: Foot Exam 07/11/2025 07/11/2024, 07/11/2024, 07/11/2024, Additional history exists Tobacco Screening 10/04/2025 10/04/2024 Cervical Cancer Screening 04/08/2026 HPV/Cotest 04/08/2026 04/08/2021 Pap Smear 04/08/2026 04/08/2021 Colonoscopy 08/19/2031 08/19/2021 Colorectal Cancer Screening 08/19/2031 DTaP/Tdap/Td Vaccines (3 - Td or Tdap) 12/20/2033 12/21/2023, 02/14/2013, 03/25/2005, Additional history exists RSV Patients and Patients Aged 60 years or older (1 - 1-dose 75+ series) 2043 Hepatitis A Vaccines Aged Out 07/18/2013, 11/03/2011, 08/26/2011, Additional history exists No longer eligible based on patient's age to complete this topic Hepatitis B Vaccines Completed 07/18/2013, 11/03/2011, 08/26/2011, Additional history exists Zoster Vaccines Completed 05/21/2020, 07/18/2019 COVID-19 Vaccine Discontinued 10/02/2021, 09/2021, 12/31/2020 Pneumococcal Vaccine: 50+ Years Completed 12/21/2023, 12/14/2000 HIV Screening Completed 12/31/2023 Hepatitis C Screening Completed 12/31/2023 Influenza Vaccine Completed 08/22/2024, , 10/04/2021, Additional history exists HIB Vaccines Aged Out No longer eligi ble based on patient's age to complete this topic HPV Vaccines Aged Out No longer eligi ble based on patient's age to complete this topic IPV Vaccines Aged Out No longer eligi ble based on patient's age to complete this topic Meningococcal Vaccine Aged Out No renee katerine eligible based on patient's age to complete this topic RSV under 20 months Aged Out No longe r eligible based on patient's age to complete this topic Rotavirus Vaccines Aged Out No longer eligible based on patient's age to complete this topic Goals Goal Patient Goal Type Associated Problems Recent Progress Patient-Stated? Author Blood Pressure < 140/90 Blood Pressure 154/80(2023 9:18 AM EST) No Dillon Askew Hemoglobin A1c < 7 Result Component 7.4( 9:08 AM EDT) No Dillon Askew Procedures Procedure Name Priority Date/Time Associated Diagnosis Comments GLUCOSE, WHOLE BLOOD Routine 11/17/2024 8:39 AM EST FERRITIN Routine 11/11/2024 10:42 AM EST COMPREHENSIVE METABOLIC PANEL Routine 11/11/2024 10:42 AM EST VITAMIN B12/FOLATE, SERUM PANEL Routine 11/11/2024 10:42 AM EST CBC WITH AUTO DIFFERENTIAL Routine 11/11/2024 10:42 AM EST DESTRUCTION OF LESION Routine 10/04/2024 1:08 PM EST H/O verruca vulgaris POCT GLUCOSE Routine 08/22/2024 9:56 AM EST Type 2 diabetes mellitus without complication, with long-term current use of insulin ([facility]) POCT GLYCATED HEMOGLOBIN, TOTAL Routine 07/11/2024 9:08 AM EDT Type 2 diabetes mellitus without complication, with long-term current use of insulin (CMS/[facility]) HP LINK DIABETIC FOOT EXAM Routine 07/11/2024 DIABETES EYE EXAM Routine 05/12/2024 ALBUMIN, RANDOM URINE W/CREATININE Routine 12/31/2023 10:05 AM EDT HEPATITIS C AB W/REFL TO HCV RNA, QN, PCR Routine 12/31/2023 10:01 AM EDT Encounter for health-related screening HIV 1/2 ANTIGEN/ANTIBODY, FOURTH GENERATION W/RFL Routine 12/31/2023 10:01 AM EDT Encounter for health-related screening LIPID PANEL, STANDARD Routine 12/31/2023 10:01 AM EDT Class 3 severe obesity with serious comorbidity and body mass index (BMI) of 40.0 to 44.9 in adult, unspecified obesity type (CMS/[facility]) BI MAMMOGRAM SCREENING TOMOSYNTHESIS BILATERAL Routine 01/21/2023 12:26 PM EDT COLONOSCOPY Routine 08/19/2021 HPV MRNA E6/E7 Routine 04/08/2021 11:44 AM EDT THINPREP IMAGING SYSTEM PAP Routine 04/08/2021 11:44 AM EDT from Last 3 Months or Most Recently Relevant to Health Maintenance Results * (ABNORMAL) Glucose, Whole Blood (11/17/2024 8:39 AM EST) Glucose, Whole Blood 150(H) 60 - 115 mg/dL [facility] Comment:METER #: [id number] 11/17/2024 8:39 AM EST 11/17/2024 8:48 AM EST Generic External Data Provider LAB BLOOD ORDERAB LES Final Result Performing Organization Address [facility] de Phone Number [facility] [address] [place] [phone] * Vitamin B12 (Cobalamin) and Folate Panel, Serum (11/11/2024 10:42 AM EST) [facility] Vitamin B12 248 200 - 900 pg/mL [facility] Comment:NORMAL 200-900 PG/ML INDETERMINATE 160-199 PG/ML DEFICIENT < 160 PG/ML Folate 9.0 > or = 4.0 ng/mL [facility] Comment:Reference Values:> o r = 4.0 ng/mL< 4.0 ng/mL suggests folate deficiency Methotrexate, aminopterin and folinic acid(leucovorin) are chemotherapeutic agents whose molecularstructures are similar to folate; therefore, the Architectfolate assay cannot be used for patients using these drugs. 11/11/2024 10:4 2 AM EST 11/11/2024 10:42 AM EST [place] External Data Provider LAB BLOOD ORDERAB LES Final Result Performing Organization Address [facility] Phone Number [facility] [address] [place] [phone] * (ABNORMAL) CBC auto differential (11/11/2024 10:42 AM EST) [facility] White Blood Count 7.9 4.8 - 10.8 X10*3/uL [facility] Red Blood Count 3.51(L) 4.20 - 5.50 X10*6/uL [facility] Hemoglobin 11.4(L) 12.0 - 16.0 g/dl [facility] Hematocrit 32.9(L) 37.0 - 47.0 % [facility] Mean Corpuscular Volume 93.7 80.0 - 98.0 fL [facility] Mean Corpuscular Hemoglobin 32.5 27.0 - 33.0 pg [facility] Mean Corpuscular HGB Conc 34.7 31.0 - 35.0 g/dl [facility] Red Cell Distribution Width 12.1 11.0 - 16.0 % [facility] Platelet Count 321 160 - 400 X10*3/uL [facility] Mean Platelet Volume 8.8(L) 9.4 - 12.3 fL [facility] Neutrophils Percent Auto 61.2 45 - 73 % [facility] Imm Gran Pct Auto 0.5(H) 0.0 - 0.4 % [facility] Lymphocytes Percent Auto 26.6 20 - 40 % [facility] Monocytes Percent Auto 7.9 2 - 11 % [facility] Eosinophils Percent Auto 3.4 0 - 4 % [facility] Basophils Percent Auto 0.4 0 - 2 % [facility] NRBC Pct Auto 0.0 0.0 - 0.2 /100WBC [facility] Neutrophils Absolute Auto 4.8 2.0 - 8.3 x10*3/uL [facility] Imm Gran Abs Auto 0.04(H) 0.00 - 0.03 X10*3/uL [facility] Lymphocytes Absolute Auto 2.1 1.2 - 4.9 X10*3/uL [facility] Monocytes Absolute Auto 0.6 0.1 - 1.2 X10*3/uL [facility] Eosinophils Absolute Auto 0.3 0.0 - 0.4 X10*3/uL [facility] Basophils Absolute Auto 0.0 0.0 - 0.2 X10*3/uL [facility] NRBC Abs Auto 0.000 0.0 - 0.012 X10*3/uL [facility] 11/11/2024 10:4 2 AM EST 11/11/2024 10:42 AM EST us Generic External Data Provider LAB BLOOD ORDERAB LES Final Result [facility] [address] [place] [phone] * Ferritin (11/11/2024 10:42 AM EST) Ferritin 58 10 - 250 ng/mL [facility] 11/11/2024 10:4 2 AM EST 11/11/2024 10:42 AM EST us Generic External Data Provider LAB BLOOD ORDERAB LES Final Result [facility] [address] [place] [phone] * (ABNORMAL) Comprehensive Metabolic Panel (11/11/2024 10:42 AM EST) Sodium 132(L) 135 - 145 mmol/L [facility] Potassium 4.6 3.3 - 5.1 mmol/L [facility] Chloride 95(L) 96 - 108 mmol/L [facility] Carbon Dioxide 27 22 - 29 mmol/L [facility] Anion Gap 15 12 - 20 [facility] Urea Nitrogen (BUN) 11 9 - 16 mg/dL [facility] Creatinine, Serum 0.58 0.5 - 1.4 mg/dL [facility] Estimated Glomerular Filt Rate >60 [facility] Comment:Chronic Kidney Disea se: Estimated GFR < 60 mL/min/1.28o1Odalme Kidney Disease: Estimated GFR < 15 mL/min/1.73m2 Glucose 126(H) 60 - 115 mg/dL [facility] Calcium 8.2(L) 8.4 - 10.2 mg/dL [facility] Bilirubin, Total 0.3 0.0 - 1.0 mg/dL [facility] Aspartate Amino Transferase 30 5 - 31 U/L [facility] Alanine Aminotransferase 22 0 - 31 U/L [facility] Total Protein 8.1(H) 6.5 - 8.0 g/dL [facility] Albumin Level 4.2 3.5 - 5.0 g/dL [facility] Alkaline Phosphatase 81 39 - 117 U/L [facility] 11/11/2024 10:4 2 AM EST 11/11/2024 10:42 AM EST us Generic External Data Provider LAB BLOOD ORDERAB LES Final Result [facility] [address] [place] [phone] [phone] * Destruction of lesion (10/04/2024 1:08 PM EST) Narrative Rigo Weathers MD - 10/04/2024 1:08 PM EST Rigo Weathers MD ? 10/04/2024 ??1:10 PM Destruction of lesion Date/Time: 10/04/2024 1:08 PM Performed by: Rigo Weathers MD Authorized by: Rigo Weathers MD ?? Consent: ??Consent obtained: ??Verbal and written ??Consent given by: ??Patient ??Risks discussed: ??Infection and poor cosmetic result ??Alternatives discussed: ??Observation [place] protocol: ??Procedure explained and questions answered to patient or proxy's satisfaction: yes ?Relevant documents present and verified: no ?Test results available: no ?Imaging studies available: no ?Required blood products, implants, devices, and special equipment available: no ?Site/side marked: no ?Immediately prior to procedure, a time out was called: yes ?Patient identity confirmed: ??Verbally with patient Number of Lesions: 1 Lesion 1: ??Body area: upper extremity ??Upper extremity location: R thumb ??Initial size (mm): 4 ??Final defect size (mm): 4 ??Malignancy: benign lesion ?Destruction method: cryotherapy ?? us Rigo Weathers MD DERM PROCEDURE ORDERABLES F inal Result * POCT Glucose (08/22/2024 9:56 AM EST) Glucose Blood, POC 77 60 - 200 mg/dL QC Media Lot # [id number] Lot# Expiration Date [id number] Blood Capillary blood specimen / Unknown 08/22/2024 9:56 AM EST Ingrid Clemens MD POINT OF CARE TEST ENTER/EDIT ORDERABLES Final Result * (ABNORMAL) POCT HGB A1C (07/11/2024 9:08 AM EDT) Hemoglobin A1C 7.4(A) 4.0 - 6.0 % QC Media Lot # [id number] Lot# Expiration Date [id number] Blood 07/11/2024 9:08 AM EDT Ingrid Clemens MD POINT OF CARE TEST ENTER/EDIT ORDERABLES Final Result * HP Diabetic Foot Exam (07/11/2024) Narrative Ingrid Clemens MD - 07/11/2024 Bunion Ingrid Clemens MD HEALTH MAINTENANCE Final Resu lt * (ABNORMAL) Diabetes Eye Exam (05/12/2024) Eye Exam Abnormal( A) Normal Comment:Moderate retinopathy Emanuel Barbour MD HEALTH MAINTENANCE Final Result * (ABNORMAL) Albumin, Random Urine W/Creatinine (12/31/2023 10:05 AM EDT) Creatinine, Urine 57.50 mg/dL [facility] Microalbumin Urine 34.0 mg/L H [facility] Microalbum Creatinine Ratio Ur 59.1(H) <30 ug/mg cr [facility] Comment:Albumin/Creatinine R atio Reference Ranges: Normal: < 30 ug/mg creatinine Microalbuminuria: 30 - 300 ug/mg creatinineClinical Albuminuria: > 300 ug/mg creatinine 12/31/2023 10:0 5 AM EDT 12/31/2023 2:19 PM EDT Ingrid Clemens MD LAB URINE ORDERABLES Final Re sult [facility] [address] [place] [address] [phone] * Hepatitis C Antibody with Reflex to HCV, RNA, Quantitative, Real-Time PCR (12/31/2023 10:01 AM EDT) Hepatitis C Antibody Nonreactive Nonreactive [facility] Comment:Antibodies to HCV no t detected; does not exclude early acuteHCV infection. Blood Venous blood specimen / Unknown 12/31/2023 10:01 AM EDT 12/31/2023 2:14 PM EDT us Ingrid Clemens MD LAB BLOOD ORDERABLES Final Re sult Performing Organization Address [facility] Co de Phone Number [facility] [address] [place] [phone] * HIV-1/2 Antigen and Antibodies, Fourth Generation, with Reflexes (12/31/2023 10:01 AM EDT) HIV AB/AG Nonreactive Nonreactive [facility] Comment:HIV-1 p24 Ag and/or HIV-1/HIV-2 Ab not detected.A test result that is nonreactive does not exclude thepossibility of exposure to or infection with HIV-1 and/orHIV-2. Nonreactive results in this assay for individualswith prior exposure to HIV-1 and/or HIV-2 may be due toantigen and antibody levels that are below the limit ofdetection of this assay.The [employer] HIV Ag/Ab Combo assay result andsupplemental assay results should be interpreted inconjunction with the patient's clinical presentation,history and other laboratory results. If the results areinconsistent with clinical evidence, additional testing issuggested to confirm the result. Blood Venous blood specimen / Unknown 12/31/2023 10:01 AM EDT 12/31/2023 2:14 PM EDT us Ingrid Clemens MD LAB BLOOD ORDERABLES Final Re sult Performing Organization Address [facility]/ZIP Co de Phone Number [facility] [address] [place] [phone] [phone] * Lipid Panel, Standard (12/31/2023 10:01 AM EDT) Triglycerides 80 <150 mg/dL [facility] Comment:Desirable Triglyceri de: less than 150 mg/dLBorderline High Triglyceride 150-199 mg/dLHigh Triglyceride: 200-499 mg/dLVery High Triglyceride: greater than or equal to 5OO mg/dL Cholesterol 156 <200 mg/dL [facility] Comment:Desirable Cholestero l: less than 200 mg/dLBorderline High Cholesterol: 200-239 mg/dLHigh Cholesterol: greater than 239 mg/dL LDL Cholesterol Calculated 75 <100 mg/dL [facility] Comment:Desirable LDL: less than 100 mg/dLNear Optimal/Above Optimal LDL: 110- 129 mg/dLBorderline High LDL: 130-159 mg/dLHigh LDL: 160-189 mg/dLVery High LDL: greater than or equal to 190 mg/dL HDL Cholesterol 65 >40 mg/dL [facility] Comment:Desirable HDL: great er than 40 mg/dL Note: This HDL assay may give artificially low results in patients with liver disease. Blood Venous blood specimen / Unknown 12/31/2023 10:01 AM EDT 12/31/2023 2:14 PM EDT us Ingrid Clemens MD LAB BLOOD ORDERABLES Final Re sult [facility] [address] [place] [address] [phone] * BI Mammogram Screening Tomosynthesis Bilateral (01/21/2023 12:26 PM EDT) Anatomical Region Laterality Modality Breast Bilateral Mammography 01/21/2023 12:2 6 PM EDT Narrative 01/22/2023 5:04 PM EDT ? [facility] ? [address] ?[place] [address] ? Mammography Report ? Signed ? Patient: Francis,Lianna ?MR#: [id number] ? : 1970 ?Acct:[id number] ? Age/Sex: 52 / F ?ADM Date: 01/21/23 ? Loc: HO.MAMMO ? Attending Dr: Ingrid Clemens MD ? Ordering Physician: Ingrid Clemens MD ?Results: 1Nega ?? tive ? Date of Service: 01/21/23 ?Follow Up: 1 Year From Orig ?? inal Mammogram ? Procedure(s): MM tomosynthesis screening BI ?? Accession Number(s): [id number] ? cc: Ingrid Clemens MD ? EXAMINATION: ?? MM SCREENING DIGITAL BREAST TOMOSYNTHESIS, BILATERAL ? CLINICAL INFORMATION: ? Screening. Asymptomatic. ? The lifetime risk of breast cancer based on the Tyrer-Cuzick Model is ?? 6%. ? COMPARISON: ?? Mammography: 11/11/2021, 10/10/2020, 02/02/2019 ? TECHNIQUE: ?? Digital breast tomosynthesis is performed in both the craniocaudal and ?? mediolateral oblique views along with computer-aided detection (CAD). ?? Synthesized 2D images are generated from the tomosynthesis. ? FINDINGS: ?? There are scattered areas of fibroglandular density (ACR BI-RADS breast ?? composition Category b). ? No architectural abnormality or developing density or significant ?? change from prior studies. Breast tissue composition borders on ?? predominantly fatty. Background stromal and fibroglandular densities ?? are stable. There are no significant masses, abnormal calcifications, ?? or other abnormalities. ?? Biopsy clip marker again seen posterior 3:00 ?? left breast. ? MM/MM tomosynthesis screening BI ?? IMPRESSION: ?? No mammographic evidence of malignancy. ? ASSESSMENT: ? BI-RADS 1: Negative ? RECOMMENDATION: ?? Routine annual mammography screening. ? This patient's information was entered into a reminder system with a ?? target due date for their next mammogram. ? Dictated By: ?jE Garcia MD ? Signed By: ?<Electronically signed by Ej Garcia MD in OV> ?01/22/23 1701 ? DD/ 1226 ? TD/TT: ? Transformer Inspector: SALTER ? Procedure Note Donhiwotter, Image - 01/22/2023 [facility] [address] [place] [address] Mammography Report Signed Patient: Glo Francis#: [id number] : 1970Acct:[id number] Age/Sex: 52 / FADM Date: 01/21/23 Loc: HO.MAMMO Attending Dr: Ingrid Clemens MD Ordering Physician: Ingrid Clemensults: 1Nega tive Date of Service: 01/21/23Follow Up: 1 Year From Orig inal Mammogram Procedure(s): MM tomosynthesis screening BI Accession Number(s): [id number] cc: Ingrid Clemens MD EXAMINATION: MM SCREENING DIGITAL BREAST TOMOSYNTHESIS, BILATERAL CLINICAL INFORMATION: Screening. Asymptomatic. The lifetime risk of breast cancer based on the Tyrer-Cuzick Model is 6%. COMPARISON: Mammography: 11/11/2021, 10/10/2020, 02/02/2019 TECHNIQUE: Digital breast tomosynthesis is performed in both the craniocaudal and mediolateral oblique views along with computer-aided detection (CAD). Synthesized 2D images are generated from the tomosynthesis. FINDINGS: There are scattered areas of fibroglandular density (ACR BI-RADS breast composition Category b). No architectural abnormality or developing density or significant change from prior studies. Breast tissue composition borders on predominantly fatty. Background stromal and fibroglandular densities are stable. There are no significant masses, abnormal calcifications, or other abnormalities. Biopsy clip marker again seen posterior 3:00 left breast. MM/MM tomosynthesis screening BI IMPRESSION: No mammographic evidence of malignancy. ASSESSMENT: BI-RADS 1: Negative RECOMMENDATION: Routine annual mammography screening. This patient's information was entered into a reminder system with a target due date for their next mammogram. Dictated By: Ej Garcia MD Signed By: <Electronically signed by Ej Garcia MD in OV> 01/22/23 1701 DD/ 1226 TD/TT: Transformer Inspector: SALTER [facility] External Provider IMG BI PROCEDURES Final Result * Hm Colonoscopy (08/19/2021) Colonoscopy Normal Normal Narrative Noemy Monsalve - 08/19/2021 Recommended 10 year follow up Historical Provider HEALTH MAINTENANCE Final Result * THINPREP TIS PAP (04/08/2021 11:44 AM EDT) Clinical Information: Postmenopausal [facility] COMMENT SEE COMMENT [facility] Comment: EXPLANATORY NOTE: ? The Pap is a screening test for cervical cancer. It is ?? not a diagnostic test and is subject to false negative ?? and false positive results. It is most reliable when a ?? satisfactory sample, regularly obtained, is submitted ?? with relevant clinical findings and history, and when ?? the Pap result is evaluated along with historic and ?? current clinical information. ?? COMMENT: This Pap test has been evaluated with computer assisted technology. [facility] District Court Administrator : SEE COMMENT [facility] Comment: RXB, CT(ASCP) CT screening location: [address] ??[phone] Interpretation/R esult: Negative for intraepithelial lesion or malignancy. [facility] LMP: NONE [facility] Prev. BX: NONE [facility] Prev. PAP: NONE [facility] Review District Court Administrator : SEE COMMENT [facility] Comment: CMG, CT(ASCP) CT screening location: [address] ??[phone] SOURCE: Cervix [facility] Statement Of Adequacy: SEE COMMENT [facility] Comment: Satisfactory for evaluation. Endocervical/transformation zone component present. 04/08/2021 11:4 4 AM EDT us Ingrid Clemens MD LAB PATHOLOGY ORDERABLES Seperanza l Result Performing Organization Address [facility] Co de Phone Number [facility] [address] * HPV mRNA E6/E7 (04/08/2021 11:44 AM EDT) HPV nRNA E6/E7 Not Detected Not Detected [facility] Comment: Methodology: Athletic Instructor-Mediated Amplification This assay detects E6/E7 viral messenger RNA (mRNA) from 14 high-risk HPV types (16,18,31,33,35,39,45,51,52,56,58,59,66,68). ? The analytical performance characteristics of this assay have been determined by [employer]. The modifications have not been cleared or approved by the FDA. This assay has been validated pursuant to the CLIA regulations and is used for clinical purposes. ?? For additional information, please refer to http://education.[employer]/faq/DWB482i3 (This link if provided for information/ educational purposes only.) 04/08/2021 11:4 4 AM EDT us Ingrid Clemens MD LAB BLOOD ORDERABLES Final Re sult Performing Organization Address [facility] Co de Phone Number [facility] [address] from Last 3 Months or Most Recently Relevant to Health Maintenance Insurance MEDICARE [facility]LY [facility] Care Teams Manager Data Warehouse Relationship Specialty Start Date End Date Ingrid Clemens MD [address] [place] [phone] PCP - General Family Medicine 11/28/20
--- OUTSIDE RECORDS SUMMARY | 2024-11-17 10:51 | XMS_ITS | Encounter Summary ---
Author Organization [employer] Address [address] [facility] [address]t [place] [address] Care Team Providers Care Seo Strategist Name Role Phone Ingrid Cleemns MD Primary Care Provider [phone] Reason for Visit * Reason Comments Med Refill Encounter Details Date Type Department Care Team ([facility] st Contact Info) Description 02/18/2024 Refill [facility] MED & PEDS [address] [place], [place] [phone] Ingrid Clemens MD [address] [place] [address] Coronary artery disease, unspecified vessel or lesion type, unspecified whether angina present, unspecified whether [place] or transplanted heart Social History Tobacco Use Types Packs/Day Years [...] documented as of this encounter Visit Diagnoses Diagnosis Coronary artery disease, unspecified vessel or lesion type, unspecified whether angina present, unspecified whether [place] or transplanted heart documented in this encounter Additional Health Concerns Assessment Noted Time PHQ-9 Depression Total Score: 8 12/25/19 23 10:37 AM EST documented as of this encounter Care Teams Seo Strategist Relationship Specialty Start Date End Date Ingrid Clemens MD [address] [place] [phone] PCP - General Family Medicine 11/28/20 documented as of this encounter
--- OUTSIDE RECORDS SUMMARY | 2024-11-17 10:51 | XMS_ITS | Encounter Summary ---
Author Organization [employer] Address [address] [place] [address] [address] [place] [address] Care Team Providers Care Electromatic Typist Name Role Phone Ingrid Clemens MD Primary Care Provider Reason for Visit * Reason Onset Date Comments Nurse Triage 04/03/2023 Encounter Details Date Type Department Care Team ([facility] st Contact Info) Description 04/03/2023 Telephone C [facility] PEDS [address] [place] [address] Ingrid Clemens MD [address] [place] [address] Nurse Triage Social History Tobacco Use Types Packs/Day Years Used Date Smoking Tobacco: Never Passive Smoke Exposure: Never Smokeless Tobacco: Never Alcohol Use Standard Drinks/Week Comments Never 0 (1 standard drink = 0.6 oz pur e alcohol) Depression Answer Date Recorded Patient Health Questionnaire-9 Score 8 12/24/2022 Depression Answer Date Recorded Patient Health Questionnaire-2 Score 1 12/24/2022 Comments Unknown Sex and Gender Information Value Date Recorded Sex Assigned at Female 08/18/2022 10:14 AM EDT Legal Sex Female 10:14 AM EDT Gender Identity Female 08/18/2022 10:14 AM EDT Sexual Orientation Straight 08/18/2022 10 :14 AM EDT COVID-19 Exposure Response Date Recorded In the last 10 days, have yo u been in contact with someone who was confirmed or suspected to have Coronavirus/COVID-19? No / Unsure 03/17/2023 1:43 PM EDT documented as of this encounter Miscellaneous Notes * Telephone Encounter - Mary Jo Gupta RN - 04/03/2023 12:36 PM EDT Triage call with [place] [employer] Clerk [place] [id number] Pt reports vomiting for last 4 days. Pt is unable to eat anything. Tried soft oatmeal this morning and vomited. Today Pt vomited 2x at time of call. Pt doesn't remember how many times vomited last 4 days. Pt reports drinking 4 glasses of liquid in a day. Pt is advised to increase liquids to 6-8 glasses per day including chicken/beef/veg broth, decaf tea with honey/lemon, juices and to not eat unless no vomiting for at least 8 hours. Pt agrees. Pt denies diarrhea /fever. Pt doesn't know if weight loss has occurred. Pt does have GERD and reports that some of this vomiting starts from upper abdominal irritation. Pt reports taking pantoprazole daily as ordered. Apt SDC CHC 04/07 @ 940am. Insuranc e is verified as active at time of booking. Protocol Used: Vomiting (Adult) Protocol-Based Disposition: See in Office or Video Visit within 2 Weeks Video visit not offered Positive Triage Question: * Vomiting is a chronic symptom (recurrent or ongoing AND lasting > 4 weeks) * All higher-acuity triage questions were negative Care Advice Discussed: * Reassurance and Education - Severe Vomiting * Reassurance and Education - Mild to Moderate Vomiting * For Non-Stop Vomiting, Try Sleeping * Clear Liquids * Solid Food * Avoid Nonprescription Medicines * Contagiousness * Expected Course * Reasons To Call Back - Vomiting lasts for more than 2 days (48 hours) - Signs of dehydration occur - You become worse * Telephone Encounter - Yifan Craig - 04/03/2023 11:52 AM EDT Symptoms: Loss of Appetite, Vomiting Outcome: Schedule an urgent appointment (within 4 hours) or talk to a nurse or provider soon Reason: Vomited at least once in the past 8 hours Slovenian speaker The caller accepted this outcome documented in this encounter Plan of Treatment Not on file documented as of this encounter Visit Diagnoses Not on filedocumented in this encounter Additional Health Concerns Assessment Noted Time PHQ-9 Depression Total Score: 8 03/08/20 23 10:37 AM EST documented as of this encounter Care Teams Electromatic Typist Relationship Specialty Start Date End Date Ingrid Clemens MD [address] [place] [address] PCP - General Family Medicine 11/28/20 documented as of this encounter
--- OUTSIDE RECORDS SUMMARY | 2024-11-17 10:51 | XMS_ITS | Encounter Summary ---
Author Organization [employer] Address [address] [facility] [address] [place] [address] Care Team Providers Care Folder Taper Operator Name Role Phone Ingrid Clemens MD Primary Care Provider [phone] Reason for Visit * Reason Onset Date Comments Call Back Request 11/03/2024 Encounter Details Date Type Department Care Team ([facility] st Contact Info) Description 11/03/2024 Telephone [facility] [address] [place] [address] Ingrid Clemens MD [address] [place] [address] Call Back Request Social History Tobacco Use Types Packs/Day Years [...] AM EDT documented as of this encounter Miscellaneous Notes * Telephone Encounter - Syeda Romero RN - 11/03/2024 4:06 PM EST TC to Maria A at number provided in last message. NO answer, no message left d/t the voicemail stated it was for [facility]. Will attempt to contact again. * Telephone Encounter - Patrick Aiken - 11/03/2024 9:21 AM EST Tc [place] Maria A (nurse navigator) [place] [facility] a [place] as she has several questions to ask elvis pt sodium. [phone] documented in this encounter Plan of Treatment [...] documented as of this encounter Care Teams Folder Taper Operator Relationship Specialty Start Date End Date Ingrid Clemens MD [address] [place] [address] PCP - General Family Medicine 11/28/20 documented as of this encounter
--- OUTSIDE RECORDS SUMMARY | 2024-11-17 10:51 | XMS_ITS | Encounter Summary ---
Author Organization [employer] Address [address] [facility] [address] [place] [address] Care Team Providers Care Account Representative Name Role Phone Ingrid Clemens MD Primary Care Provider [phone] Reason for Visit * Reason Comments Med Refill Encounter Details Date Type Department Care Team ([facility] st Contact Info) Description 01/14/2024 Refill [facility] MED & PEDS [address] [place], [place] [phone] Ingrid Clemens MD [address] [place] [address] Social History Tobacco Use Types Packs/Day Years Used Date Smoking Tobacco: Never Passive Smoke Exposure: Never Smokeless Tobacco: Never Alcohol Use Standard Drinks/Week Comments Never 0 (1 standard drink = 0.6 oz pur e alcohol) Depression Answer Date Recorded Patient Health Questionnaire-9 Score 8 12/24/2022 Housing Stability Answer Date Recorded What is your housing situation today? I have marcbharati denise 08/03/[address] you [...] documented as of this encounter Care Teams Account Representative Relationship Specialty Start Date End Date Ingrid Clemens MD [address] [place] [address] PCP - General Family Medicine 11/28/20 documented as of this encounter
--- OUTSIDE RECORDS SUMMARY | 2024-11-17 10:51 | XMS_ITS | Encounter Summary ---
Author Organization [employer] Address [address] [facility] [address] [place] [address] Care Team Providers Care Engine Research Engineer Name Role Phone Ingrid Clemens MD Primary Care Provider [phone] Encounter Details Date Type Department Care Team ([facility] st Contact Info) Description 11/11/2024 Orders Only GENERIC EXTERNAL DATA DEPARTMENT Provider, Generic External Data Social History Tobacco Use Types Packs/Day Years [...] Procedure Name Priority Date/Time Associated Diagnosis Comments VITAMIN B12/FOLATE, SERUM PANEL Routine 11/11/2024 10:42 AM EST CBC WITH AUTO DIFFERENTIAL Routine 11/11/2024 10:42 AM EST FERRITIN Routine 11/11/2024 10:42 AM EST COMPREHENSIVE METABOLIC PANEL Routine 11/11/2024 10:42 AM EST documented in this encounter Results * Ferritin (11/11/2024 10:42 AM EST) Ferritin 58 10 - 250 ng/mL [facility] 11/11/2024 10:4 2 AM EST 11/11/2024 10:42 AM EST us Generic External Data Provider LAB BLOOD ORDERAB LES Final Result [facility] [address] [place] [phone] * (ABNORMAL) Comprehensive Metabolic Panel (11/11/2024 10:42 AM EST) Sodium 132(L) 135 - 145 mmol/L [facility] Potassium 4.6 3.3 - 5.1 mmol/L [facility] Chloride 95(L) 96 - 108 mmol/L [facility] Carbon Dioxide 27 22 - 29 mmol/L [facility] Anion Gap 15 12 - 20 [facility] Urea Nitrogen (BUN) 11 9 - 16 mg/dL [facility] Creatinine, Serum 0.58 0.5 - 1.4 mg/dL [facility] Estimated Glomerular Filt Rate >60 [facility] Comment:Chronic Kidney Disea se: Estimated GFR < 60 mL/min/[id number] Kidney Disease: Estimated GFR < 15 mL/min/1.73m2 Glucose 126(H) 60 - 115 mg/dL [facility] Calcium 8.2(L) 8.4 - 10.2 mg/dL [facility] Bilirubin, Total 0.3 0.0 - 1.0 mg/dL [facility] Aspartate Amino Transferase 30 5 - 31 U/L [facility] Alanine Aminotransferase 22 0 - 31 U/L [facility] Total Protein 8.1(H) 6.5 - 8.0 g/dL [facility] Albumin Level 4.2 3.5 - 5.0 g/dL [facility] Alkaline Phosphatase 81 39 - 117 U/L [facility] 11/11/2024 10:4 2 AM EST 11/11/2024 10:42 AM EST us Generic External Data Provider LAB BLOOD ORDERAB LES Final Result [facility] [address] [place] [phone] * Vitamin B12 (Cobalamin) and Folate Panel, Serum (11/11/2024 10:42 AM EST) Vitamin B12 248 200 - 900 pg/mL [facility] Comment:NORMAL 200-900 PG/ML INDETERMINATE 160-199 PG/ML DEFICIENT < 160 PG/ML Folate 9.0 > or = 4.0 ng/mL [facility] Comment:Reference Values:> o r = 4.0 ng/mL< 4.0 ng/mL suggests folate deficiency Methotrexate, aminopterin and folinic acid(leucovorin) are chemotherapeutic agents whose molecularstructures are similar to folate; therefore, the Architectfolate assay cannot be used for patients using these drugs. 11/11/2024 10:4 2 AM EST 11/11/2024 10:42 AM EST us Generic External Data Provider LAB BLOOD ORDERAB LES Final Result [facility] [address] [place] [address] [phone] * (ABNORMAL) CBC auto differential (11/11/2024 10:42 AM EST) White Blood Count 7.9 4.8 - 10.8 X10*3/uL [facility] Red Blood Count 3.51(L) 4.20 - 5.50 X10*6/uL [facility] Hemoglobin 11.4(L) 12.0 - 16.0 g/dl [facility] Hematocrit 32.9(L) 37.0 - 47.0 % [facility] Mean Corpuscular Volume 93.7 80.0 - 98.0 fL [facility] Mean Corpuscular Hemoglobin 32.5 27.0 - 33.0 pg [facility] Mean Corpuscular HGB Conc 34.7 31.0 - 35.0 g/dl [facility] Red Cell Distribution Width 12.1 11.0 - 16.0 % [facility] Platelet Count 321 160 - 400 X10*3/uL [facility] Mean Platelet Volume 8.8(L) 9.4 - 12.3 fL [facility] Neutrophils Percent Auto 61.2 45 - 73 % [facility] Imm Gran Pct Auto 0.5(H) 0.0 - 0.4 % [facility] Lymphocytes Percent Auto 26.6 20 - 40 % [facility] Monocytes Percent Auto 7.9 2 - 11 % [facility] Eosinophils Percent Auto 3.4 0 - 4 % [facility] Basophils Percent Auto 0.4 0 - 2 % [facility] NRBC Pct Auto 0.0 0.0 - 0.2 /100WBC [facility] Neutrophils Absolute Auto 4.8 2.0 - 8.3 x10*3/uL [facility] Imm Gran Abs Auto 0.04(H) 0.00 - 0.03 X10*3/uL [facility] Lymphocytes Absolute Auto 2.1 1.2 - 4.9 X10*3/uL [facility] Monocytes Absolute Auto 0.6 0.1 - 1.2 X10*3/uL [facility] Eosinophils Absolute Auto 0.3 0.0 - 0.4 X10*3/uL [facility] Basophils Absolute Auto 0.0 0.0 - 0.2 X10*3/uL [facility] NRBC Abs Auto 0.000 0.0 - 0.012 X10*3/uL [facility] 11/11/2024 10:4 2 AM EST 11/11/2024 10:42 AM EST us Generic External Data Provider LAB BLOOD ORDERAB LES Final Result Performing Organization Address City/State/[facility] Co de Phone Number [facility] [address] [place] [phone] documented in this encounter Visit Diagnoses Not on filedocumented in this encounter Additional Health Concerns Assessment Noted Time PHQ-9 Depression Total Score: 3 02/22/20 24 10:37 AM EDT documented as of this encounter Care Teams Engine Research Engineer Relationship Specialty Start Date End Date Ingrid Clemens MD [address] [place] [address] PCP - General Family Medicine 11/28/20 documented as of this encounter
--- OUTSIDE RECORDS SUMMARY | 2024-11-17 10:51 | XMS_ITS | Encounter Summary ---
Author Organization [employer] Address [address] [facility] [address] [place] [address] Care Team Providers Care Psychometrician Name Role Phone Ingrid Clemens MD Primary Care Provider [phone] Reason for Visit * Reason Comments Med Refill Encounter Details Date Type Department Care Team ([facility] st Contact Info) Description 01/20/2023 Refill [facility] [address] [place], [place] [phone] Ingrid Clemens MD [address] [place] [address] Social History Tobacco Use Types Packs/Day Years [...] suspected to have Coronavirus/COVID-19? No / Unsure 12/24/2022 10:12 AM EST documented as of this encounter Plan of Treatment Not on file documented as of this encounter Visit Diagnoses Not on filedocumented in this encounter Additional Health Concerns Assessment Noted Time PHQ-9 Depression Total Score: 8 12/25/19 23 10:37 AM EST documented as of this encounter Care Teams Psychometrician Relationship Specialty Start Date End Date Ingrid Clemens MD [address] [place] [address] PCP - General Family Medicine 11/28/20 documented as of this encounter
--- OUTSIDE RECORDS SUMMARY | 2024-11-17 10:51 | XMS_ITS | Encounter Summary ---
Author Organization [employer] Address [address] [facility] [address] [place] [address] Care Team Providers Care Clearance Coordinator Name Role Phone Ingrid Clemens MD Primary Care Provider [phone] Reason for Visit * Reason Comments Med Refill Encounter Details Date Type Department Care Team ([facility] st Contact Info) Description 10/18/2024 Refill [facility] [address] [place], [place] [phone] Ingrid Clemens MD [address] [place] [address] Depressive disorder Social History Tobacco Use Types Packs/Day Years [...] as of this encounter Visit Diagnoses Diagnosis Depressive disorder Depressive disorder, not elsewhere classified documented in this encounter Additional Health Concerns Assessment Noted Time PHQ-9 Depression Total Score: 3 02/22/20 24 10:37 AM EDT documented as of this encounter Care Teams Clearance Coordinator Relationship Specialty Start Date End Date Ingrid Clemens MD [address] [place] [address] PCP - General Family Medicine 11/28/20 documented as of this encounter
== END 2024-11-17 10:52 | disposition home or self-care (01) ==
PROVIDERS: PCP Family Medicine; Visit Provider Internal Medicine Gastroenterology
PROC: 0DJ08ZZ Inspection of Upper Intestinal Tract, Via Natural or Artificial Opening Endoscopic (ICD-10-PCS; CPT 43235; principal; 2024-11-17 10:50)
DX: K29.50 Unspecified chronic gastritis without bleeding (principal); K29.80 Duodenitis without bleeding; K21.9 Gastro-esophageal reflux disease without esophagitis; K58.0 Irritable bowel syndrome with diarrhea; D64.9 Anemia, unspecified; G40.909 Epilepsy, unspecified, not intractable, without status epilepticus; I10 Essential (primary) hypertension; E11.9 Type 2 diabetes mellitus without complications; J45.909 Unspecified asthma, uncomplicated; G47.30 Sleep apnea, unspecified; F32.A Depression, unspecified; Z79.4 Long term (current) use of insulin; Z79.84 Long term (current) use of oral hypoglycemic drugs; Z79.85 Long-term (current) use of injectable non-insulin antidiabetic drugs; Z79.51 Long term (current) use of inhaled steroids; Z79.899 Other long term (current) drug therapy; Z88.7 Allergy status to serum and vaccine; Z88.8 Allergy status to other drugs, medicaments and biological substances; Z87.891 Personal history of nicotine dependence; Z56.0 Unemployment, unspecified; Z98.890 Other specified postprocedural states
CPT/HCPCS: 43239; 82947; 88305; 88313; 88342; J2003; J2704

== ENCOUNTER 2025-05-24 09:43 | Outpatient (REF) | payer MEDICARE, MEDICAID, SELFPAY ==
--- OUTSIDE RECORDS SUMMARY | 2025-05-24 10:08 | XMS_ITS | Encounter Summary ---
Author Organization [employer] Address [address] [facility] [address] [place] [address] Care Team Providers Care Student Outreach Coordinator Name Role Phone Ingrid Clemens MD Primary Care Provider [phone] Reason for Visit * Reason Comments Med Refill Encounter Details Date Type Department Care Team ([facility] st Contact Info) Description 01/14/2024 Refill [facility] [address] [place], [place] [phone] Ingrid Clemens MD [address] [place] [address] Social History Tobacco Use Types Packs/Day Years [...] Author Blood Pressure < 140/90 Blood Pressure 159/89(2024 2:42 PM EDT) No Dillon Askew Hemoglobin A1c < 7 Result Component 8.8( 2:46 PM EDT) No Dillon Askew documented as of this encounter Visit Diagnoses Not on filedocumented in this encounter Additional Health Concerns Assessment Noted Time PHQ-9 Depression Total Score: 8 12/25/19 23 10:37 AM EST documented as of this encounter Care Teams Student Outreach Coordinator Relationship Specialty Start Date End Date Ingrid Clemens MD [address] [place] [address] PCP - General Family Medicine 11/28/20 Raffy Shahid Consulting Physician Neurology 03/15/25 documented as of this encounter
== END 2025-05-24 09:44 | disposition home or self-care (01) ==
LOC: HO.MAMMO 09:43
PROVIDERS: PCP Family Medicine; Visit Provider Family Medicine
DX: Z12.31 Encounter for screening mammogram for malignant neoplasm of breast (principal)
CPT/HCPCS: 77063; 77067

== ENCOUNTER → 2025-05-24 09:45 | Outpatient (BNV) | payer MEDICARE, MEDICAID, SELFPAY | PROVIDERS: PCP Family Medicine; Visit Provider Radiology Body Imaging | DX: Z12.31 Encounter for screening mammogram for malignant neoplasm of breast (principal) | CPT/HCPCS: 77063; 77067 ==

== ENCOUNTER 2025-08-08 11:03 | Outpatient (AMB) | payer MEDICARE, MEDICAID, SELFPAY ==
--- NOTE | 2025-08-08 11:26 | A.OFFVIS_ITS ---
Intake Visit Reasons: 6m sz Allergies doxepin Allergy (Intermediate, Verified 08/08/25 11:30) Nightmare vaccine adjuvant system, AS01B lipo (From Shingrix (PF)) Allergy (Intermediate, Verified 08/08/25 11:30) Itching/rash varicella-zoster virus glycoprotein (From Shingrix (PF)) Allergy (Intermediate, Verified 08/08/25 11:30) Itching/rash Medication List - Last Reconciled 08/08/25 by Kylee Puri CNP albuterol sulfate 90 mcg/actuation (ProAir HFA) 2 puffs inhalation Q6H PRN atorvastatin 80 mg PO DAILY cholecalciferol (vitamin D3) 50 mcg PO DAILY citalopram 1 tab PO DAILY cyclobenzaprine 5 mg PO BEDTIME darifenacin ER 15 mg PO DAILY dicyclomine 20 mg PO BID dulaglutide (Trulicity) 0.5 mL subcut QWEEK fluticasone furoate 50 mcg/actuation (Arnuity Ellipta) 1 inh inhalation DAILY fluticasone propionate 44 mcg/actuation (Flovent HFA) 2 puffs PO BID glipizide 5 mg PO DAILY ibuprofen 600 mg PO Q6H PRN imipramine HCl 10 mg PO BEDTIME insulin glargine (Lantus Solostar U-100 Insulin) 6 units subcut QPM lisinopril 1 tab PO DAILY loratadine (Allergy Relief (loratadine)) 10 mg PO DAILY melatonin 5 mg PO BEDTIME metformin 1,000 mg PO BID mometasone 50 mcg/actuation (Nasonex) 2 sprays intranasal DAILY oxcarbazepine 600 mg orally 1 tablet in the morning, 1 tablet in the evening, and 2 tablets at bedtime; pantoprazole 40 mg PO DAILY propranolol 20 mg PO BID sucralfate (Carafate) 10 mL PO BID sumatriptan succinate take 1 tab at onset of headache; if no relief may repeat 1 tab after at least 2 hrs; max = 4 tabs/24 hr PO topiramate 25 mg PO BEDTIME trazodone 50 mg PO DAILY HPI Comments Details: 55-year-old woman with obesity, Type II DM, GERD, asthma, migraine and complex partial seizure disorder (unresponsiveness, fall). She was doing okay. No seizures or spells. Headaches were okay with topiramate. Sumatriptan as needed helped. Sleep was okay. [facility] Medical History Epilepsy HTN (hypertension) Depression Sleep apnea Asthma Diabetes IBS (irritable bowel syndrome) GERD (gastroesophageal reflux disease) Surgical History H/O colonoscopy S/P panniculectomy History of carpal tunnel release Hx of tubal ligation History of nasal surgery History of ear surgery Family History Father Diabetes Mother Alzheimers disease HTN (hypertension) Social History Alcohol intake: unknown Patient Tobacco Use Status: Former Tobacco user Tobacco use type: Cigarette Current occupational status: unemployed Current occupation: right hand dominant Review of Systems Const Denies chills, Denies daytime sleepiness, Denies difficulty sleeping, Denies fatigue, Denies fever(s), Denies frequent falls, Reports headache(s), Denies increased appetite, Denies poor appetite, Denies snoring, Denies weakness, Denies weight gain and Denies weight loss Eyes Denies loss of vision ENT Denies vertigo, Denies dizziness and Reports headache(s) Card Denies chest pain at rest, Denies chest pain with activity, Denies syncope, Denies leg edema and Denies palpitations Resp Denies snoring GI Denies constipation, Denies heartburn, Denies diarrhea and Denies nausea Denies urinary frequency, Denies urinary incontinence and Denies urinary urgency Musc Denies abnormal gait, Denies numbness and Denies tingling Skin/Breast Denies dry skin and Denies rash Neuro Denies abnormal gait, Denies vertigo, Denies dizziness, Denies syncope, Denies frequent falls, Reports headache(s), Denies lack of coordination, Denies loss of vision, Denies memory loss, Denies numbness, Denies restless legs, Denies seizure-like activity, Denies tingling, Denies paresthesias, Denies tremor(s) and Denies weakness Psych Denies anxiety, Denies depression, Denies auditory hallucinations, Denies memory loss, Denies visual hallucinations and Denies suicidal ideation Endo Denies fatigue and Denies palpitations Physical Exam Const Other: General Appearance:? normal, in no acute distress. Skin:? no rashes, no significant birthmarks. Heart:? S1, S2 normal, no murmurs. Lungs:? clear anteriorly and posteriorly. Extremities:? no edema. Psych:? alert, oriented, cognitive function intact, cooperative with exam. Neuro Other: Mental Status:?Normal attention, orientation, memory and affect.? Cranial Nerves:?Pupils are equal, round and reactive to light. External occular muscles are intact. Visual best are full. Face is symmetrical. Facial sensations are normal. Tongue is midline. Palate elevates symmetrically. Shoulder shrugging is normal. Hearing to bedside conversation is normal. Sensory Exam:?....? Coordination:?No ataxia,?no titubation.? Gait Exam: Within normal limits. Extrapyramidal System:?No tremor, rigidity with normal facial expressions.? Pronator Drift:?Not present.? Involuntary Movements:?No tremors seen.? Speech:?Normal.? Results Reviewed Results Reviewed: 48 hr EEG at [facility] in 2019: left temp sharps and slow waves, phase reversal at T3 EEG at office in Jun 2020: WNL EEG in Aug 2016: [place] [facility] [place]: mild bifrontal [place] [facility] [place]: a few tiny WM lesions EEG in Jan 2014 in office: WNL EEG in office in Nov 2014: WNL Assessment & Plan Assessment & Plan (1) Complex partial seizure disorder without intractable epilepsy: Code(s): G40.209 - Localization-related (focal) (partial) symptomatic epilepsy and epileptic syndromes with complex partial seizures, not intractable, without status epilepticus Category: Medical Qualifiers: Status epilepticus: without status epilepticus Qualified Code(s): G40.209 - Localization-related (focal) (partial) symptomatic epilepsy and epileptic syndromes with complex partial seizures, not intractable, without status epilepticus Plan: Continue oxcarbazepine 600mg 1 tablet in the morning, 1 tablet in the evening, and 2 tablets at bedtime. (2) Migraine: Code(s): G43.909 - Migraine, unspecified, not intractable, without status migrainosus Category: Medical Qualifiers: Migraine type: unspecified Status migrainosus presence: without status migrainosus Intractability: not intractable Qualified Code(s): G43.909 - Migraine, unspecified, not intractable, without status migrainosus Plan: Continue topiramate 25mg 1 tablet at bedtime. Continue sumatriptan 50mg 1 tablet as needed for migraine. (3) Migraine equivalent: Code(s): G43.109 - Migraine with aura, not intractable, without status migrainosus Category: Medical Plan Meds tried for seizures: Tegretal Meds tried for headaches: Propranolol, verapamil, amitriptyline Coding Level of Care Code Est Pt Level 4 (93944) Diagnoses Partial symptomatic epilepsy with complex partial seizures, not intractable, without status epilepticus G40.209 Status epilepticus: without status epilepticus Migraine without status migrainosus, not intractable, unspecified migraine type G43.909 Migraine type: unspecified Status migrainosus presence: without status migrainosus Intractability: not intractable Migraine equivalent G43.109
--- OUTSIDE RECORDS SUMMARY | 2025-08-08 13:59 | XMS_ITS | Clinical Summary ---
Author Organization [employer] Address [address] [facility] [address] [place] [address] Care Team Providers Care Spreading Machine Operator Name Role Phone Ingrid Clemens MD Primary Care Provider [phone] Allergies Active Allergy Reactions Criticality Noted Date Comments Doxepin Other 10/23/2022 Nightmares Zoster Vaccine Recombinant, Adjuvanted Itching,Rash Low 06/04/2020 Medications loperamide (Imodium) 2 MG capsule TAKE ONE OR TWO CAPSULES FOUR TIMES DAILY NEEDED FOR DIARRHEA 023 Active Blood Glucose Monitoring Suppl (Visual RevenueStyle Lite) device Inject 1 each under the skin 3 times daily. 1 each 023 Active Continuous Blood Gluc Gum Machine Operator (LiquidWare Labsyle Narciso 2 [place]uma) device Use 1 CGM sensor to monitor interstitial blood glucose 8 times a day, change sensor every 14 days 1 each 023 Active albuterol 108 (90 Base) MCG/ACT inhaler INHALE TWO PUFFS FOUR TIMES DAILY NEEDED 8.5 g 1 024 Active simethicone (Gas Relief) 80 MG chewable tablet CHEW ONE TABLET FOUR TIMES DAILY NEEDED 120 tablet 5 024 Active OXcarbazepine (Trileptal) 600 MG tabletIndication s:Focal Epilepsy Take 1,200 mg by mouth 2 times daily. Active Acetaminophen Extra Strength 500 MG tablet TAKE TWO TABLETS EVERY 8 HOURS NEEDED FOR PAIN 60 tablet 024 Active pantoprazole (ProtoNix) 40 MG EC tabletIndication s:Gastroesophage al reflux disease without esophagitis TAKE ONE TABLET EVERY MORNING HEARTBURN 90 tablet 3 024 Active Continuous Glucose Sensor (Visual RevenueStyle Narciso 2 Sensor) miscIndications: Type 2 diabetes mellitus without complications (HCC) Use 1 CGM sensor to monitor interstitial blood glucose 8 times a day, change sensor every 14 days 2 each Active Easy Touch Lancets 33G/Twist miscIndications: Type 2 diabetes mellitus without complications (HCC) TEST BLOOD SUGAR THREE TIMES DAILY AND NEEDED 200 each Active imipramine (Tofranil) 10 MG tablet TAKE ONE TABLET EVERY NIGHT AT BEDTIME Active ibuprofen 600 MG tablet TAKE ONE TABLET BY MOUTH THREE TIMES DAILY 90 tablet Active bismuth subsalicylate (Pepto Bismol) 262 MG chewable tablet Chew 1 tablet if needed each day for indigestion. otc Active SUMAtriptan (Imitrex) 50 MG tablet TAKE 1 TABLET BY MOUTH AT ONSET OF MIGRAINE. MAY REPEAT ONCE AFTER 2 HOURS IF NEEDED 9 tablet Active FreeStyle Precision Kashif Test test stripIndications :Type 2 diabetes mellitus without complications (HCC) TEST BLOOD SUGAR THREE TIMES DAILY 100 strip Active loratadine (Claritin) 10 MG tablet TAKE 1 TABLET EVERY MORNING FOR ALLERGIES 90 tablet 3 Active metFORMIN (Glucophage) 1000 MG tabletIndication s:Type 2 diabetes mellitus with hyperglycemia, unspecified whether meterman insulin use (HCC) TAKE ONE TABLET IN THE MORNING AND EVENING WITH MEALS 180 tablet Active traZODone (Desyrel) 100 MG tablet TAKE ONE TABLET EVERY NIGHT AT BEDTIME 90 tablet Active Diclofenac Sodium 1 % gel Apply 5 g topically 4 times daily. 200 g Active dicyclomine (Bentyl) 20 MG tablet Take 1 tablet (20 mg) by mouth 2 times daily. 180 tablet Active Insulin Glargine-yfgn 100 UNIT/ML solution pen-injector Inject 0.4 mL (40 Units) under the skin before breakfast. 12 mL Active Arnuity Ellipta 50 MCG/ACT inhaler INHALE 1 PUFF EVERY MORNING. RINSE MOUTH AFTER USE 30 each Active atorvastatin (Lipitor) 80 MG tablet TAKE ONE TABLET EVERY NIGHT AT BEDTIME (CHOLESTEROL) 30 tablet 5 06/27/2 025 Active citalopram (CeleXA) 20 MG tabletIndication s:Depressive disorder TAKE ONE TABLET EVERY MORNING (MOOD) 30 tablet 5 Active atorvastatin (Lipitor) 80 MG tablet Take 1 tablet (80 mg) by mouth Once per day. 90 tablet 1 025 Active citalopram (CeleXA) 20 MG tabletIndication s:Depressive disorder Take 1 tablet (20 mg) by mouth Once per day. 90 tablet 1 Active Continuous Glucose Gum Machine Operator (FreeStyle Narciso 3 Yuma) deviceIndication s:Type 2 diabetes mellitus without complication, with long-term current use of insulin (HCC) 1 each Once per day. Use as directed for CGM 1 each Active Continuous Glucose Sensor (FreeStyle Narciso 3 Plus Sensor) miscIndications: Type 2 diabetes mellitus without complication, with long-term current use of insulin (HCC) 1 each every 15 days. Apply 1 every 15 days as directed for CGM 2 each Active glucose blood (FreeStyle Precision Kashif Test) test stripIndications :Type 2 diabetes mellitus without complication, with long-term current use of insulin ([facility]) Use to test blood sugar 3 times daily in case of CGM failure or extremes of BG 100 each 2025 Active amLODIPine (Norvasc) 5 MG tablet TAKE ONE TABLET EVERY MORNING FOR BLOOD PRESSURE 90 tablet 3 Active oxybutynin XL (Ditropan-XL) 5 MG 24 hr tabletIndication s:Mixed stress and urge urinary incontinence TAKE ONE TO GUMS EVERY NIGHT AT BEDTIME (incontinence) 90 tablet 3 025 Active ferrous gluconate (Fergon) 324 (37.5 Fe) MG tablet TAKE ONE TABLET EVERY MORNING WITH BREAKFAST 90 tablet 1 Active Mounjaro 2.5 MG/0.5ML solution auto-injectorInd ications:Type 2 diabetes mellitus without complication, with long-term current use of insulin (HCC) INJECT ONE PEN (=2.5MG) SUBCUTANEOUSLY ONCE A WEEK DIRECTED 2 mL 2 Active propranolol (Inderal) 20 MG tabletIndication s:Coronary artery disease, unspecified vessel or lesion type, unspecified whether angina present, unspecified whether [place] or transplanted heart TAKE ONE TABLET IN THE MORNING AND EVENING FOR BLOOD PRESSURE 60 tablet 5 025 Active sodium chloride 1 g tabletIndication s:Hypo-osmolalit y and hyponatremia TAKE ONE TABLET BY MOUTH EVERY MORNING 30 tablet 2 025 Active BD Pen Needle Mini Ultrafine 31G X 5 MM misc usar DAILY WITH lantus 100 each 11 025 Active insulin degludec (Tresiba FlexTouch) 100 UNIT/ML injection Inject 40 Units under the skin at bedtime. 12 mL 11 025 2025 Active lisinopril 40 MG tablet TAKE ONE TABLET EVERY NIGHT AT BEDTIME FOR BLOOD PRESSURE 90 tablet 1 025 Active lisinopril 40 MG tablet TAKE 1 TABLET EVERY NIGHT AT BEDTIME FOR BLOOD PRESSURE 90 tablet 3 024 2024 Discontinued Active Problems Problem Noted Date Diagnosed Date Trigger middle finger of right hand 03/15/2025 Bunion of great toe 07/28/2024 Intractable migraine without status migrainosus 02/08/2024 Assessment & Plan (02/22/2024 1:52 PM EDT): Continue on iron medication. Referring to Neurologist for further investigation of headaches. Begin Sumatripton for headaches. Called Aeronautical Engineering Technologist to verify if referral was received. Advised [...] TID. Primary hypertension 06/29/2023 Assessment & Plan (03/21/2025 8:36 AM EDT): Patient is currently on multiple antihypertensive medications including propranolol, lisinopril 40 mg, and amlodipine 5 mg. Blood pressure control status is unclear due to lack of home monitoring data. Plan: - Continue current antihypertensive regimen: - Propranolol (dose not specified) - Lisinopril 40 mg - Amlodipine 5 mg - Instruct patient to monitor blood pressure at home and bring readings to next appointment - Follow up in 4 weeks for hypertension management Assessment & Plan (06/29/2023 5:11 PM EDT): Patient with a slight elevated blood pressure was advised to keep monitoring BP at home. Medication compliance was recommended. Seizure disorder ([facility]) 04/29/2023 Eye contusion, right, initial encounter 03/17/20 [...] without complications 0 12/04/2022 Assessment & Plan (03/21/2025 8:37 AM EDT): Patient reports running out of insulin due to insurance issues requiring prior authorization. Current prescription is for 40 units. Blood glucose control is suboptimal. Patient experiences nausea with Trulicity. Plan: - Discontinue Trulicity due to side effects and poor glycemic control - Initiate Mounjaro (tirzepatide) 2.5 mg, pending insurance approval - Continue metformin (dose not specified) - Check vitamin B12 levels - Follow up in 4 weeks for diabetes management - Assist with insurance prior authorization for insulin Assessment & Plan (08/22/2024 10:16 AM EST): [...] treatment of DM, pt declined seeing a bridge crane operator at this time. Reviewed and updated immunization [...] recommended reduction of 20-30% of maintenance calories; bridge crane operator referral offered. Recommended to decrease soda and [...] Encounters Date Type Department Care Team Description 08/03/2025 Refill [facility] [address] [place] [address] Ingrid Clemens MD 06/22/2025 Refill [facility] [address] [place] [address] Ingrid Clemens MD 06/13/2025 Refill [facility] [address] [place] [address] Ingrid Clemens MD 06/10/2025 Refill [facility] [address] [place] [address] Ingrid Clemens MD Hypo-osmolality and hyponatremia 06/10/2025 Refill [facility] [address] [place] [address] Michael Queen MD Coronary artery disease, unspecified vessel or lesion type, unspecified whether angina present, unspecified whether [place] or transplanted heart; Hypo-osmolality and hyponatremia 06/08/2025 Refill [facility] [address] [place] [address] Ingrid Clemens MD Type 2 diabetes mellitus without complication, with long-term current use of insulin ([facility]) 05/16/[address] [facility] [address] [place] [address] Rigo Weathers MD 05/16/2025 Refill [facility] [address] [place] [address] Ingrid Clemens MD Mixed stress and urge urinary incontinence from Last 3 Months Immunizations Immunization Administration Dates Next Due Hep A / [...] Answer Date Recorded Patient Health Questionnaire-9 Score 15 03/15/2025 Patient Health Questionnaire-9 Score 15 03/15/2025 Last PHQ-9: Questionnaire Data Not on file 0 03/15/2025 Housing Stability Answer Date Recorded What is your housing situation today? I have marc denise 03/15/[address] you li ve. Do you have problems with any of the following? None of the above 03/15/2025 Food Insecurity Answer Date Recorded Within the past 12 months, y ou worried that your food would run out before you got money to buy more: Never True 03/15/2025 Within the past 12 months,th e food you bought just didn't last and you didn't have enough money to get more: Never True Transportation Answer Date Recorded In the past 12 months, has l ack of transportation kept you from medical appts, meetings, work or from getting things needed for daily living? No 03/15/2025 Utilities Answer Date Recorded In the past 12 months, has t he electric, gas, oil or water company threatened to shut off services in your home? No 08/03/2023 Depression Answer Date Recorded Patient Health Questionnaire-2 Score 4 03/15/2025 Internet Access Answer Date Recorded Internet Access Q1 Yes 03/15/2025 Internet Access Q2 Not on file 03/15/2025 Comments Unknown Sex and Gender Information Value Date Recorded Sex Assigned at Female 08/18/2022 10:14 AM EDT Legal Sex Female 10:14 AM EDT Gender Identity Female 08/18/2022 10:14 AM EDT Sexual Orientation Straight 08/18/2022 10 :14 AM EDT Last Filed Vital Signs Vital Sign Reading Time Taken Comments Blood Pressure 159/89 03/15/2025 2:42 PM EDT Pulse 78 03/15/2025 2:42 PM EDT Temperature 36.7 C (98.1 F) 03/15/2025 2:42 PM EDT Respiratory Rate 18 03/15/2025 2:42 PM EDT Oxygen Saturation 98% 03/15/2025 2:42 PM EDT Inhaled Oxygen Concentration - - Weight 103 kg (228 lb) 03/15/2025 2:42 PM EDT Height 165.1 cm (5' 5 ) 03/15/2025 2:42 PM EDT Body Mass Index 37.94 03/15/2025 2:42 PM EDT Plan of Treatment Health Maintenance Due Date Last Done Comments CT Colonography 1968 FIT DNA/Cologuard 1968 FIT 1968 FOBT 1970 Sigmoidoscopy 1970 Disability Screening 1968 Alcohol/Substance Use Screening 1980 Diabetes: Urine Protein Screening 12/30/2024 12/31/2023, 01/13/2023, 07/30/2022, Additional history exists Lipid Panel 12/30/2024 12/31/2023, 12/18, 07/30/2022, Additional history exists SDOH Screening 02/21/2025 02/22/2024 Eye Exam 05/12/2025 05/12/2024 Diabetes: Hemoglobin A1C 06/15/2025 025, 07/11/2024, 12/21/2023, Additional history exists Influenza Vaccine (#1) 2025 , 07/30/2022, 10/04/2021, Additional history exists Diabetes: Foot Exam 07/11/2025 07/11/2024, 07/11/2024, 07/11/2024, Additional history exists Depression Monitoring 09/15/2025 03/15/2025, 025 Tobacco Screening 03/15/2026 03/15/2025 Cervical Cancer Screening 04/08/2026 HPV/Cotest 04/08/2026 04/08/2021 Pap Smear 04/08/2026 04/08/2021 Mammogram 05/24/2026 05/24/2025, 04/0 02/2023, 11/11/2021, Additional history exists Colonoscopy 08/19/2031 08/19/2021 Colorectal Cancer Screening 08/19/2031 [...] Completed 12/31/2023 Hepatitis C Screening Completed 12/31/2023 HIB Vaccines Aged Out No longer eligi ble based on patient's age to complete this topic HPV Vaccines Aged Out No longer eligi ble based on patient's age to complete this topic IPV Vaccines Aged Out No longer eligi ble based on patient's age to complete this topic Meningococcal B Vaccine Aged Out No l onger eligible based on patient's age to complete this topic Meningococcal Vaccine Aged Out No ernee katerine eligible based on patient's age to [...] 8.8( 2:46 PM EDT) No Dillon Askew Procedures Procedure Name Priority Date/Time Associated Diagnosis Comments BI MAMMOGRAM SCREENING TOMOSYNTHESIS BILATERAL Routine 05/24/2025 9:45 AM EDT Breast cancer screening by mammogram POCT GLYCATED HEMOGLOBIN, TOTAL Routine 03/15/2025 2:46 PM EDT Type 2 diabetes mellitus without complication, with long-term current use of insulin ([facility]) HP LINK DIABETIC FOOT EXAM Routine 07/11/2024 HM DIABETES EYE EXAM Routine 05/12/2024 ALBUMIN, RANDOM [...] to 44.9 in adult, unspecified obesity type (CMS/HCC) HM COLONOSCOPY Routine 08/19/2021 HPV MRNA E6/E7 Routine 04/08/2021 11:44 AM EDT THINPREP IMAGING SYSTEM PAP Routine 04/08/2021 11:44 AM EDT from Last 3 Months or Most Recently Relevant to Health Maintenance Results * BI Mammogram Screening Tomosynthesis Bilateral (05/24/2025 9:45 AM EDT) Anatomical Region Laterality Modality Breast Bilateral Mammography 05/24/2025 9:45 AM EDT Narrative 06/03/2025 5:18 PM EDT [facility] [address] [place] [address] Mammography Report Signed Patient: Lianna Francis MR#: [id number] : 1970 Acct:[id number] Age/Sex: 54 / F ADM Date: 05/24/25 Loc: [facility] Attending Dr: Ingrid Clemens MD Ordering Physician: Ingrid Clemens MD Results: 2Beni gn Findings Date of Service: 05/24/25 Follow Up: 1 Year From Orig ina Mammogram Procedure(s): MM tomosynthesis screening BI Accession Number(s): [id number] cc: Ingrid Clemens MD EXAMINATION: MM SCREENING DIGITAL BREAST TOMOSYNTHESIS, BILATERAL CLINICAL INFORMATION: Screening. Asymptomatic. COMPARISON: Comparison made to multiple prior, most recent January 21, 2023, and most remote October 10, 2020. TECHNIQUE: Digital breast tomosynthesis is performed in both the craniocaudal and mediolateral oblique views along with computer-aided detection (CAD). FINDINGS: BREAST COMPOSITION: There are scattered areas of fibroglandular density (ACR BI-RADS breast composition Category b). RIGHT BREAST: No significant masses, suspicious calcifications or other abnormalities are seen. LEFT BREAST: Tissue marker from previous surgical biopsy. No significant masses, suspicious calcifications or other abnormalities are seen. MM/MM tomosynthesis screening BI IMPRESSION: BILATERAL BREASTS: Benign, no mammographic evidence of malignancy. Normal interval follow-up is recommended in 12 months. ASSESSMENT: BI-RADS 2 - Benign Findings RECOMMENDATION: Routine annual mammography screening. FOLLOW-UP: 1 year F/U This examination should not preclude the clinical evaluation of a suspicious palpable abnormality. This patient's information was entered into a reminder system with a target due date for their next mammogram. Electronically signed by: Jak Angulo MD 06/03/2025 05:16 PM EDT RP Dictated By: Jak Angulo MD Signed By: <Electronically signed by Jak Angulo MD in OV> 06/03/25 1716 DD/ 0945 TD/TT: 05/24/25 1006 Radiographer Technologist: Procedure Note Donotuseinterpreter, Image - 06/03/2025 [facility] [address] [place] [address] Mammography Report Signed Patient: Lianna FrancisMR#: [id number] : 1970Acct:[id number] Age/Sex: 54 / FADM Date: 05/24/25 Loc: HO.MAMMO Attending Dr: Ingrid Clemens MD Ordering Physician: Ingrid Clemens MDResults: 2Beni gn Findings Date of Service: 05/24/25Follow Up: 1 Year From Orig inal Mammogram Procedure(s): MM tomosynthesis screening BI Accession Number(s): [id number] cc: Ingrid Clemens MD EXAMINATION: MM SCREENING DIGITAL BREAST TOMOSYNTHESIS, BILATERAL CLINICAL INFORMATION: Screening. Asymptomatic. COMPARISON: Comparison made to multiple prior, most recent January 21, 2023, and most remote October 10, 2020. TECHNIQUE: Digital breast tomosynthesis is performed in both the craniocaudal and mediolateral oblique views along with computer-aided detection (CAD). FINDINGS: BREAST COMPOSITION: There are scattered areas of fibroglandular density (ACR BI-RADS breast composition Category b). RIGHT BREAST: No significant masses, suspicious calcifications or other abnormalities are seen. LEFT BREAST: Tissue marker from previous surgical biopsy. No significant masses, suspicious calcifications or other abnormalities are seen. MM/MM tomosynthesis screening BI IMPRESSION: BILATERAL BREASTS: Benign, no mammographic evidence of malignancy. Normal interval follow-up is recommended in 12 months. ASSESSMENT: BI-RADS 2 - Benign Findings RECOMMENDATION: Routine annual mammography screening. FOLLOW-UP: 1 year F/U This examination should not preclude the clinical evaluation of a suspicious palpable abnormality. This patient's information was entered into a reminder system with a target due date for their next mammogram. Electronically signed by: Jak Angulo MD 06/03/2025 05:16 PM EDT Dictated By: Jak Angulo MD Signed By: <Electronically signed by Jak Angulo MD in OV> 06/03/25 1716 DD/ 0945 TD/TT: 05/24/25 1006 Radiographer Technologist: us Ingrid Clemens MD IMG BI PROCEDURES Edited Resu lt - Final * (ABNORMAL) POCT A1C (03/15/2025 2:46 PM EDT) Hemoglobin A1C 8.8(A) 4.0 - 6.0 % QC Media Lot # Comment:[id number] Lot# Expiration Date Comment:10/20/2026 Blood 03/15/2025 2:46 PM EDT us Ingrid Clemens MD POINT OF CARE TEST ENTER/EDIT ORDERABLES Final Result * HP Diabetic Foot Exam (07/11/2024) Narrative Ingrid Clemens MD - 07/11/2024 Bunion Result [facility] Ingrid Clemens MD HEALTH MAINTENANCE Final Resu lt * (ABNORMAL) Hm Diabetes Eye Exam (05/12/2024) Eye Exam Abnormal( A) Normal Comment:Moderate retinopathy Historical Angle [facility] HEALTH MAINTENANCE Final Result * (ABNORMAL) Albumin, Random Urine W/Creatinine (12/31/2023 10:05 AM EDT) Creatinine, Urine 57.50 mg/dL [facility] Microalbumin Urine 34.0 mg/L [facility] Microalbum Creatinine Ratio Ur 59.1(H) <30 ug/mg cr [facility] Comment:Albumin/Creatinine R atio Reference Ranges: Normal: < 30 ug/mg creatinine Microalbuminuria: 30 - 300 ug/mg creatinineClinical Albuminuria: > 300 ug/mg creatinine 12/31/2023 10:0 5 AM EDT 12/31/2023 2:19 PM EDT Result [facility] Ingrid Clemens MD LAB URINE ORDERABLES Final Re sult Performing Organization Address City/Va Hospital/ZIP Co de Phone Number [facility] [address] [place] [phone] * Hepatitis C Antibody with Reflex to HCV, RNA, Quantitative, Real-Time PCR (12/31/2023 10:01 AM EDT) Hepatitis C Antibody Nonreactive Nonreactive [facility] Comment:Antibodies to HCV no t detected; does not exclude early acuteHCV infection. Blood Venous blood specimen / Unknown 12/31/2023 10:01 AM EDT 12/31/2023 2:14 PM EDT Result [facility] Ingrid Clemens MD LAB BLOOD ORDERABLES Final Re sult Performing Organization Address City/Va Hospital/ZIP Co de Phone Number [facility] [address] [place] [address] [phone] * HIV-1/2 Antigen and Antibodies, Fourth Generation, with Reflexes (12/31/2023 10:01 AM EDT) HIV AB/AG Nonreactive Nonreactive [facility] Comment:HIV-1 p24 Ag and/or HIV-1/HIV-2 Ab not detected.A test result that is nonreactive does not exclude thepossibility of exposure to or infection with HIV-1 and/orHIV-2. Nonreactive results in this assay for individualswith prior exposure to HIV-1 and/or HIV-2 may be due toantigen and antibody levels that are below the limit ofdetection of this assay.The [employer] HIV Ag/Ab Combo assay result andsupplemental assay results should be interpreted inconjunction with the patient's clinical presentation,history and other laboratory results. If the results areinconsistent with clinical evidence, additional testing issuggested to confirm the result. Blood Venous blood specimen / Unknown 12/31/2023 10:01 AM EDT 12/31/2023 2:14 PM EDT us Ingrid Clemens MD LAB BLOOD ORDERABLES Final Re sult Performing Organization Address [facility] Co de Phone Number [facility] [address] [place] [phone] [phone] * Lipid Panel, Standard (12/31/2023 10:01 AM EDT) Triglycerides 80 <150 mg/dL [facility] Comment:Desirable Triglyceri de: less than 150 mg/dLBorderline High Triglyceride 150-199 mg/dLHigh Triglyceride: 200-499 mg/dLVery High Triglyceride: greater than or equal to 5OO mg/dL Cholesterol 156 <200 mg/dL [facility] Comment:Desirable Cholestero l: less than 200 mg/dLBorderline High Cholesterol: 200-239 mg/dLHigh Cholesterol: greater than 239 mg/dL LDL Cholesterol Calculated 75 <100 mg/dL [facility] Comment:Desirable LDL: less than 100 mg/dLNear Optimal/Above Optimal LDL: 110- 129 mg/dLBorderline High LDL: 130-159 mg/dLHigh LDL: 160-189 mg/dLVery High LDL: greater than or equal to 190 mg/dL HDL Cholesterol 65 >40 mg/dL [facility] Comment:Desirable HDL: great er than 40 mg/dL Note: This HDL assay may give artificially low results in patients with liver disease. Blood Venous blood specimen / Unknown 12/31/2023 10:01 AM EDT 12/31/2023 2:14 PM EDT Ingrid Clemens MD LAB BLOOD ORDERABLES Final Re sult [facility] [address] [place] [phone] * Hm Colonoscopy (08/19/2021) Colonoscopy Normal Normal Narrative Noemy Monsalve - 08/19/2021 Recommended 10 year follow up Historical Provider HEALTH MAINTENANCE Final Result * THINPREP TIS PAP (04/08/2021 11:44 AM EDT) Clinical Information: Postmenopausal [facility] COMMENT SEE COMMENT [facility] Comment: EXPLANATORY NOTE: The Pap is a screening test for cervical cancer. It is not a diagnostic test and is subject to false negative and false positive results. It is most reliable when a satisfactory sample, regularly obtained, is submitted with relevant clinical findings and history, and when the Pap result is evaluated along with historic and current clinical information. COMMENT: This Pap test has been evaluated with computer assisted technology. [facility] Can Filling Room Sweeper : SEE COMMENT [facility] Comment: RXB, CT(ASCP) CT screening location: [place] [address] Interpretation/R esult: Negative for intraepithelial lesion or malignancy. [facility] LMP: NONE [facility] Prev. BX: NONE [facility] Prev. PAP: NONE [facility] Review Can Filling Room Sweeper : SEE COMMENT [facility] Comment: CMG, CT(ASCP) CT screening location: [place] [address] SOURCE: Cervix [facility] Statement Of Adequacy: SEE COMMENT [facility] Comment: Satisfactory for evaluation. Endocervical/transformation zone component present. 04/08/2021 11:4 4 AM EDT us Ingrid Clemens MD LAB PATHOLOGY ORDERABLES Esperanza l Result Performing Organization Address [facility] Co de Phone Number [facility] [address] * HPV mRNA E6/E7 (04/08/2021 11:44 AM EDT) HPV nRNA E6/E7 Not Detected Not Detected [facility] Comment: Methodology: Chemical Engineer-Mediated Amplification This assay detects E6/E7 viral messenger RNA (mRNA) from 14 high-risk HPV types (16,18,31,33,35,39,45,51,52,56,58,59,66,68). The analytical performance characteristics of this assay have been determined by [employer]. The modifications have not been cleared or approved by the FDA. This assay has been validated pursuant to the CLIA regulations and is used for clinical purposes. For additional information, please refer to http://education.DCITS.Vivakor/faq/EBX839i5 (This link if provided for information/ educational purposes only.) 04/08/2021 11:4 4 AM EDT us Ingrid Clemens MD LAB BLOOD ORDERABLES Final Re sult Performing Organization Address [facility] Co de Phone Number [facility] [address] from Last 3 Months or Most Recently Relevant to Health Maintenance Insurance MEDICARE [facility] Care Teams Spreading Machine Operator Relationship Specialty Start Date End Date Ingrid Clemens MD [address] [place] [id number] PCP - General Family Medicine 11/28/20 Raffy Shahid Consulting Physician Neurology 03/15/25
--- OUTSIDE RECORDS SUMMARY | 2025-08-08 13:59 | XMS_ITS | Encounter Summary ---
Author Organization [employer] Address [address] [facility] 7t [place] [address] Care Team Providers Care Credit Risk Management Director Name Role Phone Ingrid Clemens MD Primary Care Provider [phone] Reason for Visit * Reason Comments Med Refill Encounter Details Date Type Department Care Team ([facility] st Contact Info) Description 01/14/2024 Refill [facility] MED & PEDS [address] [place], [place] [phone] Ingrid Clemens MD [address] [place] [address] Social History Tobacco Use Types Packs/Day Years [...] documented as of this encounter Care Teams Credit Risk Management Director Relationship Specialty Start Date End Date Ingrid Clemens MD [address] [place] [address] PCP - General Family Medicine 11/28/20 Raffy Shahid Consulting Physician Neurology 03/15/25 documented as of this encounter
--- OUTSIDE RECORDS SUMMARY | 2025-08-08 13:59 | XMS_ITS | Encounter Summary ---
Author Organization [employer] Address [address] [facility] 7t [place] [address] Care Team Providers Care Manufacturing Lab Technician Name Role Phone Ingrid Clemens MD Primary Care Provider [phone] Reason for Visit * Reason Comments Med Refill Encounter Details Date Type Department Care Team ([facility] st Contact Info) Description 02/18/2024 Refill [facility] CHC MED & PEDS [address] [place], [place] [phone] Ingrid Clemens MD [address] [place] [address] Coronary artery disease, unspecified vessel or lesion type, unspecified whether angina present, unspecified whether re[place]-sparks or transplanted heart Social History Tobacco Use [...] enough money to get more: Never True 10/ Transportation Answer Date Recorded In the past [...] type, unspecified whether angina present, unspecified whether [place]-sp[place] or transplanted heart documented in this encounter Additional Health Concerns Assessment Noted Time PHQ-9 Depression Total Score: 8 12/25/19 23 10:37 AM EST documented as of this encounter Care Teams Manufacturing Lab Technician Relationship Specialty Start Date End Date Ingrid Clemens MD [address] [place] [address] PCP - General Family Medicine 11/28/20 Raffy Shahid Consulting Physician Neurology 03/15/25 documented as of this encounter
--- OUTSIDE RECORDS SUMMARY | 2025-08-08 14:00 | XMS_ITS | Encounter Summary ---
Author Organization [employer] Address [address] [facility] 7[address] [place] [address] Care Team Providers Care Wool Spotter Name Role Phone Ingrid Clemens MD Primary Care Provider [phone] Reason for Visit * Reason Comments Med Refill Encounter Details Date Type Department Care Team ([facility] st Contact Info) Description 08/03/2025 Refill [facility] CHC MED & PEDS [address] [place], [place] [phone] Ingrid Clemens MD [address] [place] [address] Social History Tobacco Use Types Packs/Day Years [...] Assessment Noted Time PHQ-9 Depression Total Score: 15 025 3:22 PM EDT documented as of this encounter Care Teams Wool Spotter Relationship Specialty Start Date End Date Ingrid Clemens MD [address] [place] [address] PCP - General Family Medicine 11/28/20 Raffy Shahid Consulting Physician Neurology 03/15/25 documented as of this encounter
--- OUTSIDE RECORDS SUMMARY | 2025-08-08 14:00 | XMS_ITS | Encounter Summary ---
Author Organization [employer] Address [address] [facility] 7t [place] [address] Care Team Providers Care Order Desk Clerk Name Role Phone Inrgid Clemens MD Primary Care Provider [phone] Reason for Visit * Reason Comments Med Refill Encounter Details Date Type Department Care Team ([facility] st Contact Info) Description 11/19/2024 Refill [facility] CHC MED & PEDS [address] [place], [place] [phone] Ingrid Clemens MD [address] [place] [address] Social History Tobacco Use Types Packs/Day Years [...] documented as of this encounter Care Teams Order Desk Clerk Relationship Specialty Start Date End Date Ingrid Clemens MD [address] [place] [address] PCP - General Family Medicine 11/28/20 Raffy Shahid Consulting Physician Neurology 03/15/25 documented as of this encounter
--- OUTSIDE RECORDS SUMMARY | 2025-08-08 14:00 | XMS_ITS | Encounter Summary ---
Author Organization [employer] Address [address] [facility] 7t [place] [address] Care Team Providers Care Passport Support Associate Name Role Phone Ingrid Clemens MD Primary Care Provider [phone] Reason for Visit * Reason Onset Date Comments Nurse Triage 04/03/2023 error Encounter Details Date Type Department Care Team ([facility] st Contact Info) Description 04/03/2023 Telephone C CHC MED & PEDS [address] [place], [place] [phone] Ingrid Clemens MD 505 [place] [address] Nurse Triage (error) Social History Tobacco Use Types Packs/Day Years [...] 04/03/2023 12:36 PM EDT Triage call with [employer] Security Consultant [place] [id number] Pt reports vomiting for last 4 days. [...] reports taking pantoprazole daily as ordered. Apt [facility] 04/07 @ 940am. Insuranc e is verified [...] least once in the past 8 hours [place] speaker The caller accepted this outcome documented in this encounter Plan of Treatment Not on file documented as of this encounter Visit Diagnoses Not on filedocumented in this encounter Additional Health Concerns Assessment Noted Time PHQ-9 Depression Total Score: 8 12/25/19 23 10:37 AM EST documented as of this encounter Care Teams Passport Support Associate Relationship Specialty Start Date End Date Ingrid Clemens MD [address] [place] [address] PCP - General Family Medicine 11/28/20 Raffy Shahid Consulting Physician Neurology 03/15/25 documented as of this encounter
--- OUTSIDE RECORDS SUMMARY | 2025-08-08 14:00 | XMS_ITS | Encounter Summary ---
Author Organization [employer] Address [address] [facility] 7t [place] [address] Care Team Providers Care Miller Head Name Role Phone Ingrid Clemens MD Primary Care Provider [phone] Reason for Visit * Reason Comments Med Refill Encounter Details Date Type Department Care Team ([facility] st Contact Info) Description 01/20/2023 Refill [facility] CHC MED & PEDS [address] [place], [place] [phone] Ingrid Clemens MD [address] [place] [address] Social History Tobacco Use Types Packs/Day Years [...] documented as of this encounter Care Teams Miller Head Relationship Specialty Start Date End Date Ingrid Clemens MD [address] [place] [address] PCP - General Family Medicine 11/28/20 Raffy Shahid Consulting Physician Neurology 03/15/25 documented as of this encounter
--- OUTSIDE RECORDS SUMMARY | 2025-08-08 14:00 | XMS_ITS | Encounter Summary ---
Author Organization [employer] Address [address] [facility] [address] 7[address] [place] [address] Care Team Providers Care Rock Singer Name Role Phone Ingrid Clemens MD Primary Care Provider [phone] Encounter Details Date Type Department Care Team (Late st Contact Info) Description 09/03/2023 Abstract [facility] MEDICINE [address] [place] [address] Noemy Monsalve Social History Tobacco Use Types [...] documented as of this encounter Care Teams Rock Singer Relationship Specialty Start Date End Date Ingrid Clemens MD [address] [place] [id number] PCP - General Family Medicine 11/28/20 Raffy Shahid Consulting Physician Neurology 03/15/25 documented as of this encounter
== END 2025-08-08 11:37 | disposition home or self-care (01) ==
LOC: HO.HSM 11:04
PROVIDERS: PCP Family Medicine; Referring Provider Family Medicine; Visit Provider Registered Nurse
DX: G40.209 Localization-related (focal) (partial) symptomatic epilepsy and epileptic syndromes with complex partial seizures, not intractable, without status epilepticus (principal); G43.909 Migraine, unspecified, not intractable, without status migrainosus; G43.109 Migraine with aura, not intractable, without status migrainosus
CPT/HCPCS: 99214

== ENCOUNTER → 2025-08-08 11:03 | Outpatient (BNVA) | payer MEDICARE, MEDICAID, SELFPAY | PROVIDERS: PCP Family Medicine; Referring Provider Family Medicine; Visit Provider Registered Nurse | DX: G43.109 Migraine with aura, not intractable, without status migrainosus (principal); G40.209 Localization-related (focal) (partial) symptomatic epilepsy and epileptic syndromes with complex partial seizures, not intractable, without status epilepticus | CPT/HCPCS: 99212 ==